=== PATIENT | female | born 1985 | race African-American/Black ===

== ENCOUNTER 2016-08-04 14:18 | Inpatient (IN) | payer OTHER ==
[~2016-08-04] VITALS: Ht 152.4 cm; Wt 69.9 kg
[2016-08-04] MEDS ORDERED: IV NORMAL SALINE 1000ML BAG 1,000 ML IV SCH (17:15)
[2016-08-04] MEDS ORDERED: RANI150T2 PO (17:34)
[2016-08-04] MEDS ORDERED: LORA10TA3 PO (17:34)
[2016-08-04] MEDS ORDERED: VENTOLIN HFA18 GM INH (17:34)
[2016-08-04] MEDS ORDERED: LOXA50CA PO (17:34)
[2016-08-04] MEDS ORDERED: POLY17PO5 PO (17:34)
[2016-08-04] MEDS ORDERED: ESCI20TA PO (17:34)
[2016-08-04] MEDS ORDERED: CARB200T PO (17:34)
[2016-08-04] MEDS ORDERED: ALBUTEROL SULFATE 2.5 MG/3 ML NEBU. NEB PRN (17:45)
[2016-08-04 17:54] LABS: BASO # 0.1 x10^3/uL (0.0-0.2); BASO % 1 % (0-3); EOS % 1 % (0-3); HEMOGLOBIN 10.8 g/dL (12.0-15.5); LYMPH # 2.2 x10^3/uL (1.0-4.8); LYMPH % 32 % (24-48); MEAN CORPUSCULAR HEMOGLOBIN 29 pg (25-35); MEAN CORPUSCULAR HGB CONC 34 g/dL (31-37); MEAN CORPUSCULAR VOLUME 87 fL (79-100); MONO % 14 % (0-9); NEUT % 53 % (31-73); PLATELET COUNT 612 x10^3/uL (140-400); RED BLOOD COUNT 3.69 x10^6/uL (3.50-5.40); RED CELL DISTRIBUTION WIDTH 13.7 % (11.5-14.5); WHITE BLOOD COUNT 6.9 x10^3/uL (4.0-11.0)
[2016-08-04] MEDS: POLYETHYLENE GLYCOL 3350 17 GM PACKET. PO SCH (18:00)
[2016-08-04 18:06] LABS: CALCIUM 8.7 mg/dL (8.5-10.1); CREATININE 1.1 mg/dL (0.6-1.0); GFR 70.6
[2016-08-04 18:12] LABS: ALBUMIN 3.2 g/dL (3.4-5.0); ALBUMIN/GLOBULIN RATIO 0.8 (1.0-1.7); TOTAL BILIRUBIN 0.1 mg/dL (0.2-1.0); TOTAL PROTEIN 7.3 g/dL (6.4-8.2)
[2016-08-04 18:13] VITALS: BP 138/94
--- NOTE | 2016-08-04 18:37 | PDOC2 ---
NEUROLOGY CONSULT Date of Admission Date of Admission DATE: 08/04/16 TIME: 18:27 Reason for Consult Reason for Consult: IMPRESSION: Seizure Tegretol issues, level low per nursing reports. Nausea Vomiting Hyponatremia. Hypokalemia CP MR GERD Bipolar disorder RECOMMENDATIONS/PLAN: Start Keppra 500 mg bid. Suggest discontinue Tegretol. EEG Lab: see orders Treat medical diseases. OT/PT Discussed with her correctional case manager at bedside. HISTORY OF THE PRESENT ILLNESS: 30-y-old AA female patient with above medical diseases and seizures and she has been treated with Tegretol. She has nausea, vomiting is admitted into [facility] today. Per her correctional case manager that she had 3 seizures in the last week and her Tegretol level was low. PAST MEDICAL HISTORY: Please see above. PAST SURGERY HISTORY: No major surgery recently. ALLERGY: Unknown MEDICATIONS: Refer to [facility] HISTORY: Non contributory. SOCIAL HISTORY: Lives in nursing facility. Denies smoking, drinking, and illicit drug use. REVIEW OF SYSTEMS: Constitutional: No malnutrition, weight loss, cachexia. Head: No recent traumatic brain or head injury. Skin: No edema, or rash. Ear: No infection, tinnitus. Eyes: No vision loss or color blindness. Nose: No bleeding or purulent discharges. Hearing: No hearing decrease. Neck: No injury. Breast: No history of cancer, masses,or discharges. Cardiac: No [place], arrhythmia. Pulmonary: No COPD. GI: GERD. Urinary/genital: UTI. Endocrinologic: No cousin face, craniofacial dysmorphism, polydactyly, goiter. Skeletomuscular: CP. Neurological: MR. Psychiatric: Denies drug use/abuse. Otherwise, not [id number] review of systems. PHYSICAL EXAMINATION: General appearance is in subacute distress. HEENT: Normocephalic and nontraumatic. Eyes, nose, ears, and throat are unremarkable. Neck is supple. No lymphadenopathy. No bruits are heard over the carotid artery. No crepitus. Cardiovascular: S1, S2, regular rate and rhythm. Pulmonary: Clear to auscultation bilaterally. Abdomen: Bowel sounds are positive. Abdomen is soft, nontender, and nondistended. Extremities: No rash, lesions, or edema. No restriction of range of motion NEUROLOGICAL EXAMINATION: Awake. Not oriented to time, place but may know person. PERRL. EOMI. CN: no focal findings. Muscle tone: Increased. Muscle strength: 4+ DTR: Brisky UE and LE Plantar reflex: Neutral response bilaterally Gait: not examined in bed. Sensory exam: no abnormal findings. No cerebellar signs elicited. She was unable to perform F-T-N test. Current Medications Current Medications Current Medications Sodium Chloride (Iv Sodium Chloride 0.9% 1000ml Bag) 1,000 ml @ 100 mls/hr Q10H IV ; Start 08/04/16 at 17:15 Carbamazepine (Tegretol) 400 mg BID PO ; Start 08/04/16 at 21:00 Polyethylene Glycol (miraLAX PACKET) 17 gm DAILY PO ; Start 08/04/16 at 18:00 Escitalopram Oxalate (Lexapro) 20 mg DAILY PO ; Start 08/05/16 at 09:00 Cetirizine HCl (Zyrtec) 10 mg DAILY PO ; Start 08/05/16 at 09:00 Loxapine Succinate (Loxitane) 50 mg BID PO ; Start 08/04/16 at 21:00 Famotidine (Pepcid) 20 mg BID PO ; Start 08/04/16 at 21:00 Albuterol Sulfate (Ventolin Neb Soln) 2.5 mg PRN Q6HRS PRN NEB SHORTNESS OF BREATH; Start 08/04/16 at 17:45 Active Scripts Active Reported Ventolin Hfa Inhaler (Albuterol Sulfate) 18 Gm Hfa.aer.ad 2 Puff INH Q6HRS Ranitidine Hcl 150 Mg Tablet 1 Tab PO BID Miralax (Polyethylene Glycol 3350) 17 Gm Powd.pack 1 Packet PO DAILY Loxapine (Loxapine Succinate) 50 Mg Capsule 50 Mg PO BID Loratadine 10 Mg Tablet 1 Tab PO DAILY Escitalopram Oxalate 20 Mg Tablet 1 Tab PO DAILY Tegretol (Carbamazepine) 200 Mg Tablet 2 Tab PO BID Allergies Allergies: Coded Allergies: No Known Drug Allergies (Unverified , 08/04/16) Vitals VITALS Vital Signs Date Time Temp Pulse Resp B/P Pulse Ox O2 Delivery O2 Flow Rate FiO2 08/04/16 18:13 97.8 101 18 138/94 97 Room Air 97.8 Labs Labs Laboratory Tests Test 08/04/16 17:45 White Blood Count 6.9x10^3/uL (4.0-11.0) Red Blood Count 3.69x10^6/uL (3.50-5.40) Hemoglobin 10.8g/dL (12.0-15.5) Hematocrit 32.0% (36.0-47.0) Mean Corpuscular Volume 87fL (79-100) Mean Corpuscular Hemoglobin 29pg (25-35) Mean Corpuscular Hemoglobin Concent 34g/dL (31-37) Red Cell Distribution Width 13.7% (11.5-14.5) Platelet Count 612x10^3/uL (140-400) Neutrophils (%) (Auto) 53% (31-73) Lymphocytes (%) (Auto) 32% (24-48) Monocytes (%) (Auto) 14% (0-9) Eosinophils (%) (Auto) 1% (0-3) Basophils (%) (Auto) 1% (0-3) Neutrophils # (Auto) 3.6x10^3uL (1.8-7.7) Lymphocytes # (Auto) 2.2x10^3/uL (1.0-4.8) Monocytes # (Auto) 0.9x10^3/uL (0.0-1.1) Eosinophils # (Auto) 0.0x10^3/uL (0.0-0.7) Basophils # (Auto) 0.1x10^3/uL (0.0-0.2) Sodium Level 134mmol/L (136-145) Potassium Level 3.0mmol/L (3.5-5.1) Chloride Level 96mmol/L (98-107) Carbon Dioxide Level 29mmol/L (21-32) Anion Gap 9 (6-14) Blood Urea Nitrogen 10mg/dL (7-20) Creatinine 1.1mg/dL (0.6-1.0) Estimated GFR (Cockcroft-Gault) 70.6 BUN/Creatinine Ratio 9 (6-20) Glucose Level 93mg/dL (70-99) Calcium Level 8.7mg/dL (8.5-10.1) Total Bilirubin 0.1mg/dL (0.2-1.0) Aspartate Amino Transf (AST/SGOT) 17U/L (15-37) Alanine Aminotransferase (ALT/SGPT) 28U/L (14-59) Alkaline Phosphatase 62U/L (46-116) Total Protein 7.3g/dL (6.4-8.2) Albumin 3.2g/dL (3.4-5.0) Albumin/Globulin Ratio 0.8 (1.0-1.7) Carbamazepine (Tegretol) Level 13.4mcg/mL (4.0-12.0) Carbamazepine Last Dose Date 08/04/16 Carbamazepine Last Dose Time 0900 Laboratory Tests Test 08/04/16 17:45 White Blood Count 6.9x10^3/uL (4.0-11.0) Red Blood Count 3.69x10^6/uL (3.50-5.40) Hemoglobin 10.8g/dL (12.0-15.5) Hematocrit 32.0% (36.0-47.0) Mean Corpuscular Volume 87fL (79-100) Mean Corpuscular Hemoglobin 29pg (25-35) Mean Corpuscular Hemoglobin Concent 34g/dL (31-37) Red Cell Distribution Width 13.7% (11.5-14.5) Platelet Count 612x10^3/uL (140-400) Neutrophils (%) (Auto) 53% (31-73) Lymphocytes (%) (Auto) 32% (24-48) Monocytes (%) (Auto) 14% (0-9) Eosinophils (%) (Auto) 1% (0-3) Basophils (%) (Auto) 1% (0-3) Neutrophils # (Auto) 3.6x10^3uL (1.8-7.7) Lymphocytes # (Auto) 2.2x10^3/uL (1.0-4.8) Monocytes # (Auto) 0.9x10^3/uL (0.0-1.1) Eosinophils # (Auto) 0.0x10^3/uL (0.0-0.7) Basophils # (Auto) 0.1x10^3/uL (0.0-0.2) Sodium Level 134mmol/L (136-145) Potassium Level 3.0mmol/L (3.5-5.1) Chloride Level 96mmol/L (98-107) Carbon Dioxide Level 29mmol/L (21-32) Anion Gap 9 (6-14) Blood Urea Nitrogen 10mg/dL (7-20) Creatinine 1.1mg/dL (0.6-1.0) Estimated GFR (Cockcroft-Gault) 70.6 BUN/Creatinine Ratio 9 (6-20) Glucose Level 93mg/dL (70-99) Calcium Level 8.7mg/dL (8.5-10.1) Total Bilirubin 0.1mg/dL (0.2-1.0) Aspartate Amino Transf (AST/SGOT) 17U/L (15-37) Alanine Aminotransferase (ALT/SGPT) 28U/L (14-59) Alkaline Phosphatase 62U/L (46-116) Total Protein 7.3g/dL (6.4-8.2) Albumin 3.2g/dL (3.4-5.0) Albumin/Globulin Ratio 0.8 (1.0-1.7) Carbamazepine (Tegretol) Level 13.4mcg/mL (4.0-12.0) Carbamazepine Last Dose Date 08/04/16 Carbamazepine Last Dose Time 0900 THO AMBRIZ MD Aug 04, 2016 18:37
[2016-08-04 20:38] VITALS: BP 134/89
[2016-08-04] MEDS ORDERED: CARBAMAZEPINE 200 MG TABLET. PO SCH (21:00)
[2016-08-04] MEDS: LEVETIRACETAM 500 MG TABLET PO SCH (21:04)
[2016-08-04] MEDS: FAMOTIDINE 20 MG TABLET. PO SCH (21:04)
[2016-08-04] MEDS: LOXAPINE SUCCINATE 25 MG CAPSULE PO SCH (21:04)
[2016-08-04 22:01] LABS: BILIRUBIN,URINE NEGATIVE (NEG); GLUCOSE,URINE NEGATIVE (NEG); NITRITE,URINE NEGATIVE (NEG); PROTEIN,URINE NEGATIVE (NEG-TRACE); UROBILINOGEN,URINE 0.2 mg/dL (0.2 mg/dL)
[2016-08-04 22:10] LABS: BACTERIA,URINE FEW /HPF (0-FEW); RBC,URINE 20-40 /HPF (0-2); SQUAMOUS EPITHELIAL CELL,UR MANY /LPF
[2016-08-04 23:55] VITALS: BP 141/83
[2016-08-05 03:15] VITALS: BP 144/95
[2016-08-05] MEDS ORDERED: ACETAMINOPHEN 325 MG TABLET. PO PRN (03:15)
[2016-08-05 07:35] VITALS: BP 139/90
[2016-08-05] MEDS ORDERED: LORAZEPAM 1 MG TABLET. PO ONE ×2 (08:00→08:15)
--- NOTE | 2016-08-05 08:07 | PDOC ---
Provider Note Provider Note See admission H&P dictation #[id number] Impression: 1. Abdominal pain with nausea, vomiting and diarrhea: 2. Recent acute renal insufficiency: 3. Seizure disorder: 4. Supratherapeutic Tegretol level: 4. Hypokalemia: PRACHI REYNOLDS MD Aug 05, 2016 08:07
--- NOTE | 2016-08-05 08:53 | RAD ---
Indication acute renal failure. Grayscale imaging of the kidneys was performed. No prior imaging of the kidneys is available. The right kidney measures 9.8-4.7 x 3.6 cm and appears unremarkable showing no evidence of hydronephrosis or mass. The left kidney measures 10.5 x 4.5 x 3.8 cm and also appears unremarkable showing no evidence of hydronephrosis or mass. The urinary bladder appeared grossly normal. IMPRESSION: No hydronephrosis or mass seen associated with either kidney
[2016-08-05] MEDS ORDERED: ESCITALOPRAM 10 MG TABLET. PO SCH (09:00)
[2016-08-05] MEDS ORDERED: CETIRIZINE HCL 10 MG TABLET PO SCH (09:00)
[2016-08-05] MEDS: POLYETHYLENE GLYCOL 3350 17 GM PACKET. PO SCH (09:03)
[2016-08-05] MEDS: FAMOTIDINE 20 MG TABLET. PO SCH (09:04)
[2016-08-05] MEDS: POTASSIUM CHLORIDE 20 MEQ TABLET.ER. PO SCH ×2 (09:04→17:20)
[2016-08-05] MEDS: LEVETIRACETAM 500 MG TABLET PO SCH (09:04)
[2016-08-05] MEDS: LOXAPINE SUCCINATE 25 MG CAPSULE PO SCH (09:23)
--- NOTE | 2016-08-05 10:02 | RAD ---
Indication nausea and vomiting. A single KUB was obtained. The abdominal gas pattern has a nonobstructive appearance. An acute finding is not seen on the single film obtained. No organomegaly or abnormal calculi are seen. IMPRESSION: No acute or significant finding seen on KUB
[2016-08-05 11:00] VITALS: BP 149/96
--- NOTE | 2016-08-05 11:38 | RAD ---
Indication abdominal pain. Nausea and vomiting. Axial images through the abdomen and pelvis were obtained. Oral contrast was administered. IV contrast was not. No prior CT imaging of the abdomen or pelvis is available. The lung bases are clear. The liver and spleen appear unremarkable. The gallbladder is somewhat distended. There is possible thickening of the gallbladder wall. If gallbladder pathology is clinically suspect ultrasound should be considered. The pancreas appears unremarkable. There is some mild dilatation of proximal loops of small bowel. This is nonspecific. Mild ileus or low-grade mechanical obstruction are not excluded. High-grade mechanical obstruction is not suggested on this study. No definite adrenal or renal pathology is seen. No acute finding is apparent in the pelvis. IMPRESSION: Possible gallbladder pathology. If this is clinically suspect ultrasound would be advised. Mild dilatation of small bowel loops is nonspecific and may reflect ileus or conceivably partial mechanical obstruction. High-grade mechanical obstruction is not suggested on this exam
--- NOTE | 2016-08-05 12:12 | PDOC ---
PROGRESS NOTES Assessment Assessment Seizure Tegretol issues, level low per nursing reports on 08/04, but it was high on lab. UTI Nausea Vomiting Hyponatremia. Hypokalemia CP MR GERD Bipolar disorder RECOMMENDATIONS/PLAN: Continue Keppra 500 mg bid. Discontinued Tegretol on 08/04. EEG, unable to perform on her due to aggressiveness behavior. Treat medical diseases. Treat UTI. OT/PT Discussed with her leather case finisher at bedside on 08/04.. HISTORY OF THE PRESENT ILLNESS: 30-y-old AA female patient with above medical diseases and seizures and she has been treated with Tegretol. She has nausea, vomiting is admitted into [facility] today. Per her leather case finisher that she had 3 seizures in the last week and her Tegretol level was low, but repeated Tegretol level here on the floor showed high of 13.4. Anyway, Tegretol was discontinued on 08/04 and Keppra was started on 08/04. No seizures reported. PAST MEDICAL HISTORY: Please see above. PAST SURGERY HISTORY: No major surgery recently. ALLERGY: Unknown MEDICATIONS: Refer to [facility] HISTORY: Non contributory. SOCIAL HISTORY: Lives in nursing facility. Denies smoking, drinking, and illicit drug use. REVIEW OF SYSTEMS: Constitutional: No malnutrition, weight loss, cachexia. Head: No recent traumatic brain or head injury. Skin: No edema, or rash. Ear: No infection, tinnitus. Eyes: No vision loss or color blindness. Nose: No bleeding or purulent discharges. Hearing: No hearing decrease. Neck: No injury. Breast: No history of cancer, masses,or discharges. Cardiac: No [place], arrhythmia. Pulmonary: No COPD. GI: GERD. Urinary/genital: UTI. Endocrinologic: No cousin face, craniofacial dysmorphism, polydactyly, goiter. Skeletomuscular: CP. Neurological: MR. Psychiatric: Denies drug use/abuse. Otherwise, not -gltlw review of systems. PHYSICAL EXAMINATION: General appearance is in subacute distress. HEENT: Normocephalic and nontraumatic. Eyes, nose, ears, and throat are unremarkable. Neck is supple. No lymphadenopathy. No bruits are heard over the carotid artery. No crepitus. Cardiovascular: S1, S2, regular rate and rhythm. Pulmonary: Clear to auscultation bilaterally. Abdomen: Bowel sounds are positive. Abdomen is soft, nontender, and nondistended. Extremities: No rash, lesions, or edema. No restriction of range of motion NEUROLOGICAL EXAMINATION: Awake. Not oriented to time, place but may know person. PERRL. EOMI. CN: no focal findings. Muscle tone: Increased. Muscle strength: 4+ DTR: Brisky UE and LE Plantar reflex: Neutral response bilaterally Gait: not examined in bed. Sensory exam: no abnormal findings. No cerebellar signs elicited. She was unable to perform F-T-N test. Objective Objective Vital Signs Date Time Temp Pulse Resp B/P Pulse Ox O2 Delivery O2 Flow Rate FiO2 08/05/16 11:00 97.9 96 20 149/96 96 Room Air 97.9 Intake and Output 08/05/16 07:00 Intake Total 650 ml Output Total 650 ml Balance 0 ml Intake Oral 650 ml Output Urine Total 650 ml Vitals Signs Vitals VS - Last 72 Hours, by Label Date Time Temp Pulse Resp B/P Pulse Ox O2 Delivery O2 Flow Rate FiO2 08/05/16 11:00 97.9 96 20 149/96 96 Room Air 97.9 08/05/16 08:00 Room Air 08/05/16 07:35 95.9 90 20 139/90 97 Room Air 95.9 08/05/16 03:15 97.6 109 18 144/95 95 Room Air 97.6 08/04/16 23:55 99.3 108 20 141/83 97 Room Air 99.3 08/04/16 20:38 98.6 20 134/89 98 Room Air 98.6 08/04/16 20:05 Room Air 08/04/16 19:00 97 Room Air 08/04/16 18:13 97.8 101 18 138/94 97 Room Air 97.8 08/04/16 18:00 Room Air Laboratory Laboratory Laboratory Tests Test 08/04/16 17:45 08/04/16 20:15 White Blood Count 6.9x10^3/uL (4.0-11.0) Red Blood Count 3.69x10^6/uL (3.50-5.40) Hemoglobin 10.8g/dL (12.0-15.5) Hematocrit 32.0% (36.0-47.0) Mean Corpuscular Volume 87fL (79-100) Mean Corpuscular Hemoglobin 29pg (25-35) Mean Corpuscular Hemoglobin Concent 34g/dL (31-37) Red Cell Distribution Width 13.7% (11.5-14.5) Platelet Count 612x10^3/uL (140-400) Neutrophils (%) (Auto) 53% (31-73) Lymphocytes (%) (Auto) 32% (24-48) Monocytes (%) (Auto) 14% (0-9) Eosinophils (%) (Auto) 1% (0-3) Basophils (%) (Auto) 1% (0-3) Neutrophils # (Auto) 3.6x10^3uL (1.8-7.7) Lymphocytes # (Auto) 2.2x10^3/uL (1.0-4.8) Monocytes # (Auto) 0.9x10^3/uL (0.0-1.1) Eosinophils # (Auto) 0.0x10^3/uL (0.0-0.7) Basophils # (Auto) 0.1x10^3/uL (0.0-0.2) Sodium Level 134mmol/L (136-145) Potassium Level 3.0mmol/L (3.5-5.1) Chloride Level 96mmol/L (98-107) Carbon Dioxide Level 29mmol/L (21-32) Anion Gap 9 (6-14) Blood Urea Nitrogen 10mg/dL (7-20) Creatinine 1.1mg/dL (0.6-1.0) Estimated GFR (Cockcroft-Gault) 70.6 BUN/Creatinine Ratio 9 (6-20) Glucose Level 93mg/dL (70-99) Calcium Level 8.7mg/dL (8.5-10.1) Total Bilirubin 0.1mg/dL (0.2-1.0) Aspartate Amino Transf (AST/SGOT) 17U/L (15-37) Alanine Aminotransferase (ALT/SGPT) 28U/L (14-59) Alkaline Phosphatase 62U/L (46-116) Total Protein 7.3g/dL (6.4-8.2) Albumin 3.2g/dL (3.4-5.0) Albumin/Globulin Ratio 0.8 (1.0-1.7) Carbamazepine (Tegretol) Level 13.4mcg/mL (4.0-12.0) Carbamazepine Last Dose Date 08/04/16 Carbamazepine Last Dose Time 0900 Urine Collection Type Unknown Urine Color Yellow Urine Clarity Clear Urine pH 6.0 Urine Specific [place] 1.015 Urine Protein Negativemg/dL (NEG-TRACE) Urine Glucose (UA) Negativemg/dL (NEG) Urine Ketones (Stick) Negativemg/dL (NEG) Urine Blood Large (NEG) Urine Nitrite Negative (NEG) Urine Bilirubin Negative (NEG) Urine Urobilinogen Dipstick 0.2mg/dL (0.2 mg/dL) Urine Leukocyte Esterase Negative (NEG) Urine RBC 20-40/HPF (0-2) Urine WBC 5-10/HPF (0-4) Urine Squamous Epithelial Cells Many/LPF Urine Amorphous Sediment Present/HPF Urine Bacteria Few/HPF (0-FEW) Urine Mucus Mod/LPF Medication Medications Current Medications Acetaminophen (Tylenol) 650 mg PRN Q6HRS PRN PO MILD PAIN / TEMP Last administered on 08/05/16 03:13; Start 08/05/16 at 03:15 Albuterol Sulfate (Ventolin Neb Soln) 2.5 mg PRN Q6HRS PRN NEB SHORTNESS OF BREATH; Start 08/04/16 at 17:45 Carbamazepine (Tegretol) 400 mg BID PO ; Start 08/04/16 at 21:00; Stop 08/05/16 at 08:09; Status DC Cetirizine HCl (Zyrtec) 10 mg DAILY PO Last administered on 08/05/16 09:05; Start 08/05/16 at 09:00 Escitalopram Oxalate (Lexapro) 20 mg DAILY PO Last administered on 08/05/16 09: 04; Start 08/05/16 at 09:00 Famotidine (Pepcid) 20 mg BID PO Last administered on 08/05/16 09:04; Start 08/04/16 at 21:00 Levetiracetam (Keppra) 500 mg BID PO Last administered on 08/05/16 09:04; Start 08/04/16 at 21:00 Lorazepam (Ativan) 1 mg 1X ONCE PO ; Start 08/05/16 at 08:00; Stop 08/05/16 at 08 :01; Status Cancel Lorazepam (Ativan) 1 mg 1X ONCE PO Last administered on 08/05/16 10:18; Start 08/05/16 at 08:15; Stop 08/05/16 at 08:16; Status DC Loxapine Succinate (Loxitane) 50 mg BID PO Last administered on 08/05/16 09:23 ; Start 08/04/16 at 21:00 Polyethylene Glycol (miraLAX PACKET) 17 gm DAILY PO Last administered on 09:03; Start 08/04/16 at 18:00 Potassium Chloride (Klor-Con) 40 meq BID92 PO Last administered on 08/05/16 09: 04; Start 08/05/16 at 09:00; Stop 08/05/16 at 14:01 Sodium Chloride (Iv Sodium Chloride 0.9% 1000ml Bag) 1,000 ml @ 100 mls/hr Q10H IV ; Start 08/04/16 at 17:15; Stop 08/05/16 at 08:04; Status DC Comment Review of Relevant I have reviewed the following items theresa (where applicable) has been applied. THO AMBRIZ MD Aug 05, 2016 12:12
--- NOTE | 2016-08-05 13:15 | DISCH ---
DISCHARGE INSTRUCTIONS Condition on Discharge Condition on Discharge: Stable Activity After Discharge Activity Instructions for Disc: Activity as tolerated Diet after Discharge Diet after Discharge: Regular (limit fatty foods) Additional Diet Restrictions: encourage fluids Contacting the DR. after DC Call your doctor for: If your condition worsens Follow-Up Follow up with: Dr Johnson in one week. Follow Up With: Neurology per their rec for f/u on change to PRACHI Stone MD Aug 05, 2016 13:15
[2016-08-05] MEDS ORDERED: LEVE500T56 PO (13:21)
[2016-08-05 15:00] VITALS: BP 125/78
--- NOTE | 2016-08-05 18:11 | HP ---
ADMIT DATE: 08/05/2016 ATTENDING PHYSICIAN: Dr. Prachi Reynolds. CHIEF COMPLAINT: Abdominal pain with recent elevated creatinine. HISTORY OF PRESENT ILLNESS: The patient is a 30-year-old female with a history of cerebral palsy, mental retardation and seizure disorder who had been seen in the clinic on 07/31/2016 due to increased number of seizures in the week prior. The staff at her residence and facility had noticed that she had had several seizures in the week prior to admission. It was felt that she was having episodes where she was not responding. She had also been acting out in more anger during that period of time. Staff was unsure if this was behavioral or not, but the patient did have diarrhea on and off for the 4 days prior to admission with excessive sweating and a decreased appetite. Due to that she had lab work done on 07/31/2016 that returned over the weekend and on Wednesday it was noted that she had a Tegretol level which was random at 13.1 and a creatinine of 2.19, which is above the baseline of the patient's creatinine of 0.7. Her GFR estimated was 34, again, which is unusual for the patient. She did have a mildly elevated AST at 43 and a sodium of 132. She also had elevated white blood cell count at 14.7. Due to these findings, it was felt that we should admit her since the staff had reported that she had also been having some emesis over the weekend as well as unsteady staggering gait. The decision was to admit her for observation, rechecking of labs and IV fluids depending on how she was able to eat and drink as well as evaluation of abdominal pain. She does have a history of chronic abdominal pain, which is sometimes difficult to determine if this is an attention seeking response or not. When the patient was seen on 07/31/2016 it was decided due to her symptoms of the lower abdominal pain and diarrhea that we would treat empirically with Bactrim for possible UTI since she was not able to provide a urine sample at the time of the evaluation. She did reportedly receive a couple of days of that. PAST MEDICAL HISTORY: Significant for unspecified affective disorder, allergic rhinitis, chronic constipation, glucose intolerance, gastroesophageal reflux disease, cerebral palsy, developmental disability, seizure disorder. PAST SURGICAL HISTORY: Unknown if there is any significant past surgical history in the remote past, but nothing recently. SOCIAL HISTORY: She does not smoke. She does not drink any alcohol. 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 FAMILY HISTORY: Her mother and father are . ALLERGIES TO MEDICATIONS: No known drug allergies. MEDICATIONS: At the time of admission are Tegretol ER 400 mg p.o. b.i.d., Lexapro 20 mg p.o. daily, loratadine 10 mg p.o. daily, loxapine 50 mg p.o. b.i.d., MiraLax 1 capsule daily, Zantac 150 mg p.o. b.i.d., Ventolin 2 puffs q.i.d. p.r.n. REVIEW OF SYSTEMS: Limited due to the patient's mental disabilities. The staff is able to relate some history. There is no apparent recent injury. There are no breathing difficulties. She apparently has been having bowel movements. PHYSICAL EXAMINATION: VITAL SIGNS: At the time of admission were temperature 97.8, pulse 101, respiratory rate 18, blood pressure 138/94, O2 sat 94% on room air. GENERAL: The patient is a well-developed apparently nourished female in no acute distress. She has a bony prominence with scarring in the midline of the superior portion of her forehead. She does have other stigma related to mental retardation. The tympanic membranes and canals are occluded by cerumen but partly visible otherwise and appear normal. The nasal mucosa is erythematous. Oral mucosa is pink and moist. NECK: Without JVD or bruit. CHEST: Clear to auscultation bilaterally with okay air movement throughout. CARDIOVASCULAR: The heart has a regular rate and rhythm without murmur. ABDOMEN: Occasional bowel sounds, soft, minimal diffuse tenderness to palpation, but worse in the epigastric and lower abdominal area per patient report. There is no guarding or rebound tenderness apparent. EXTREMITIES: Lower extremities are without edema. NEUROLOGIC: Mental retardation. She is able to answer questions, although there is some question regarding the reliability of her answers. Gait was not tested. PSYCHIATRIC: She is somewhat tearful this morning and she is somewhat scared and she would like to talk to the staff at her home. The staff has reported in the past that she does have some attention-seeking behaviors. LABORATORY Data: At the time of admission, WBC 6.9, hemoglobin 10.8, hematocrit 32.0, platelets 612. Urine shows specific gravity 1.015, large blood, negative nitrite, leukocyte esterase, 20-40 rbc's, 5-10 wbc's, many epithelial cells, amorphous sediment is present, few urine bacteria and moderate mucus. Tegretol level was 13.4. Sodium 134, potassium 3.0, chloride 96, CO2 29, BUN 10, creatinine 1.1. LFTs are within normal limits. Albumin was 3.2, total bilirubin was 0.1, KUB of the abdomen report is pending as well as a renal ultrasound. Preliminary reading and of the KUB shows a large amount of gas in the abdomen. No apparent free air. Await official reading. IMPRESSION: 1. Abdominal pain with recent nausea, vomiting and diarrhea per staff. 2. Recent acute renal failure, which appears to be resolved and was likely due to vasomotor etiology. 3. Seizure disorder with increased seizures, possibly due to acute illness. 4. Supratherapeutic Tegretol level. 5. Hypokalemia. PLAN: The patient is admitted for further evaluation of her abdominal pain as well as her lab abnormalities including hypokalemia and elevated Tegretol level. Neurology has been consulted regarding options for changing her medication and the recommendation was to begin Keppra and consider discontinuing Tegretol. Since her Tegretol level was high and she was having some possible balance issues, we will discontinue the Tegretol for now. We will attempt to get a CT of the abdomen to make sure there is no evidence of obstruction or any other abnormality. We will replace the patient's potassium today. There was an order for an EEG, although the patient became very distraught and it likely would not be able to get a good reading from that, so we will hold on that for right now. We will also probably need to give Ativan by mouth to sedate the patient, so she may be able to get the CT scan of the abdomen. If the CT of the abdomen looks okay, and she is eating, she could possibly be discharged to home in her usual setting and do further evaluation as an outpatient if needed. PRACHI REYNOLDS MD DR: CATARINO/kaushal JOB#: [id number] / [id number]
== END 2016-08-05 19:40 | disposition home or self-care (01) | DRG 392 ==
LOC: 6 SOUTH 16:47
PROVIDERS: ADMIT Family Medicine; ATTEND Family Medicine
DX: A08.4 Viral intestinal infection, unspecified (principal); N39.0 Urinary tract infection, site not specified; E87.1 Hypo-osmolality and hyponatremia; R19.7 Diarrhea, unspecified; F79 Unspecified intellectual disabilities; G89.29 Other chronic pain; G40.909 Epilepsy, unspecified, not intractable, without status epilepticus; E87.6 Hypokalemia; K21.9 Gastro-esophageal reflux disease without esophagitis; F31.9 Bipolar disorder, unspecified; E74.39 Other disorders of intestinal carbohydrate absorption; K59.09 Other constipation; Z79.899 Other long term (current) drug therapy
CPT/HCPCS: 36415; 74000; 74176; 76770; 80053; 80156; 81001; 85027; 87086

== ENCOUNTER → 2016-08-28 | Outpatient (CLI) | payer OTHER ==
[2016-08-05 15:00] VITALS: BP 125/78
[~2016-08-28] MED LIST: CARB200T PO; ESCI20TA PO; LEVE500T56 PO; LORA10TA3 PO; LOXA50CA PO; POLY17PO5 PO; RANI150T2 PO; VENTOLIN HFA18 GM INH
--- NOTE | 2016-08-28 10:31 | KCIC ---
PROCEDURE Right upper quadrant ultrasound. HISTORY Right upper quadrant pain. Abnormal CT. TECHNIQUE Right upper quadrant ultrasound was performed. COMPARISON CT from [facility] dated August 05, 2016. FINDINGS Aorta is normal caliber. IVC is patent. Visualized pancreas is unremarkable. Liver is normal in size and is increased in echogenicity. Biliary system is dilated, common common bile duct 9 millimeters. There is cholelithiasis. The gallbladder wall is upper limit of normal at 3 millimeters. There is no pericholecystic fluid. Sonographic Orozco sign is reported as negative. Right kidney measures at least 9.7 centimeters in length and is without hydronephrosis or mass. IMPRESSION - Cholelithiasis with gallbladder wall thickening. Sonographic Oroczo sign is reported as negative. If there is still strong clinical suspicion for cholecystitis, consider hepatobiliary scintigraphy. - Dilated common bile duct, consider MRCP for further evaluation. - Minimal fatty infiltration of the liver. Electronically signed by: Juan Carlos Caballero MD (Aug 28, 2016 10:30:05)
== END | disposition home or self-care (01) ==
LOC: KCIC US 08:51
PROVIDERS: ATTEND Family Medicine
DX: R93.5 Abnormal findings on diagnostic imaging of other abdominal regions, including retroperitoneum (principal); R10.11 Right upper quadrant pain; K80.20 Calculus of gallbladder without cholecystitis without obstruction; K83.8 Other specified diseases of biliary tract; K76.0 Fatty (change of) liver, not elsewhere classified
CPT/HCPCS: 76705

== ENCOUNTER 2016-09-23 06:40 | Observation (INO) | payer OTHER ==
[~2016-09-23] VITALS: Ht 152.4 cm; Wt 68.5 kg
[2016-09-23] VITALS (8 sets, daily range): BP systolic 101–147; BP diastolic 67–103
[2016-09-23] MEDS ORDERED: IV RINGERS,LACTATED 1000ML 1,000 ML IV SCH (07:00)
[2016-09-23] MEDS ORDERED: LIDOCAINE 1% 1 ML SYRINGE. ID PRN (07:00)
[2016-09-23] MEDS ORDERED: PROCHLORPERAZINE 10 MG/2 ML VIAL. IV PRN (07:00)
[2016-09-23] MEDS ORDERED: IOHEXOL 300 MG/ML 50 ML VIAL. ONE (07:15)
[2016-09-23] MEDS ORDERED: SURGICEL HEMOSTAT 4X8 EACH. ONE (07:15)
[2016-09-23] MEDS ORDERED: BUPIVAC MPF-EPI 0.5%-1:200000 30 ML VIAL. ONE (07:15)
[2016-09-23] MEDS ORDERED: DEXAMETHASONE SOD PHOS 20 MG/5 ML VIAL. ONE (08:00)
[2016-09-23] MEDS ORDERED: FENTANYL PF 100 MCG/2 ML VIAL. ONE (08:00)
[2016-09-23] MEDS ORDERED: LIDOCAINE 2% 100 MG/5 ML DISP.SYRIN. ONE (08:00)
[2016-09-23] MEDS ORDERED: ONDANSETRON PF 4 MG/2 ML VIAL. ONE (08:00)
[2016-09-23] MEDS ORDERED: MIDAZOLAM HCL 2 MG/2 ML VIAL. ONE (08:00)
[2016-09-23] MEDS ORDERED: PROPOFOL 20 ML IV ONE (08:00)
[2016-09-23] MEDS ORDERED: SUCCINYLCHOLINE 200 MG/10 ML VIAL. ONE (08:01)
[2016-09-23] MEDS ORDERED: ROCURONIUM 50 MG/5 ML VIAL. ONE ×2 (08:01→08:54)
[2016-09-23] MEDS: CEFAZOLIN 1GM IVPB FOR OMNI 50 ML IV PRN ×2 (08:48→08:49)
[2016-09-23] MEDS ORDERED: VECURONIUM BOLUS 10 MG VIAL. IV ONE (08:56)
[2016-09-23] MEDS ORDERED: CEFAZOLIN 1GM IVPB FOR OMNI 50 ML IV ONE (09:40)
[2016-09-23] MEDS ORDERED: SEVOFLURANE 61 TO 120 MINUTES. IH ONE (09:43)
[2016-09-23] MEDS ORDERED: SUGAMMADEX SODIUM 200 MG/2 ML VIAL. IVP ONE (09:57)
--- NOTE | 2016-09-23 09:57 | RAD ---
Intraoperative cholangiogram, 09/23/2016: History: Cholecystectomy 2 spot films from surgery are presented for review. Contrast has been injected into what appears to be the cystic duct remnant. 27 seconds of fluoroscopy time was utilized. There is good flow of contrast into the duodenum at the ampulla. No filling defect is seen in the common duct to suggest a retained calculus. There is a lucency in the cystic duct which may be an air bubble or calculus. The intrahepatic ducts are incompletely opacified. No contrast extravasation is seen. IMPRESSION: Filling defect in the cystic duct which may be an air bubble or a calculus.
[2016-09-23] MEDS ORDERED: EPINEPHRINE 1 MG/ML VIAL. ONE (10:00)
[2016-09-23] MEDS ORDERED: NEOSTIGMINE METHYLSULFATE 5 MG/5 ML SYRINGE. ONE (10:21)
[2016-09-23] MEDS ORDERED: GLYCOPYRROLATE 1 MG/5 ML VIAL. ONE (10:22)
[2016-09-23] MEDS ORDERED: IV NORMAL SALINE 1000ML BAG 1,000 ML IV SCH (10:25)
[2016-09-23] MEDS ORDERED: 0.9 % SODIUM CHLORIDE 10 ML DISP.SYRIN. IV PRN (10:30)
[2016-09-23] MEDS ORDERED: HYDROMORPHONE 2 MG/ML VIAL. IV PRN (10:30)
[2016-09-23] MEDS ORDERED: METOCLOPRAMIDE HCL 10 MG/2 ML VIAL. IV PRN (10:30)
[2016-09-23] MEDS ORDERED: ONDANSETRON PF 4 MG/2 ML VIAL. IV PRN (10:30)
[2016-09-23] MEDS ORDERED: HYDR-971 PO (10:32)
--- NOTE | 2016-09-23 10:33 | PDOC ---
BRIEF OPERATIVE NOTE Pre-Op Diagnosis cholelithiasis Post-Op Diagnosis severe chronic cholecystitis Procedure Performed lap estefania, ioc Surgeon lester fagan Anesthesia Type: General Blood Loss 50 IV Fluid 1000 Specimens Obtained gb MO FAGAN MD Sep 23, 2016 10:33
[2016-09-23] MEDS: FENTANYL PF 100 MCG/2 ML VIAL. IV PRN ×5 (10:42→12:09)
[2016-09-23] MEDS: MORPHINE SULFATE 2 MG/ML DISP.SYRIN. IV PRN ×2 (11:20→11:32)
[2016-09-23] MEDS: ALBUTEROL SULFATE 2.5 MG/3 ML NEBU. NEB SCH ×2 (12:00→20:47)
[2016-09-23] MEDS ORDERED: NON FORMULARY ITEM (Albuterol Sulfate (Ventolin Hfa Inhaler) 2 PUFF) INH SCH (12:00)
[2016-09-23] MEDS: HYDROMORPHONE 2 MG/ML VIAL. IV PRN ×2 (12:15→12:26)
--- NOTE | 2016-09-23 16:10 | OP ---
DATE OF SURGERY: 09/23/2016 PREOPERATIVE DIAGNOSIS: Cholelithiasis. POSTOPERATIVE DIAGNOSIS: Severe chronic cholecystitis. PROCEDURE: Laparoscopic cholecystectomy with intraoperative cholangiogram. SURGEON: Mo Fagan M.D. ANESTHESIA: General. ESTIMATED BLOOD LOSS: 50 mL. INTRAVENOUS FLUIDS: 1000 mL. INDICATIONS: The patient is a 31-year-old mentally handicapped lady, who presents with somewhat vague symptoms and cholelithiasis on ultrasound, it was thought that her symptoms were related to symptomatic cholelithiasis. She is here for cholecystectomy. FINDINGS: She had severe chronic cholecystitis. Intraoperative cholangiogram showed no filling defects in the common duct, common hepatic duct, intrahepatic radicals and free flow of contrast into the duodenum. DESCRIPTION OF PROCEDURE: After informed consent was obtained, the patient was taken to the operating room and placed in the supine position. After adequate induction of general anesthesia, she was prepped and draped in usual sterile fashion. An infraumbilical skin incision was made with a scalpel, subcutaneous tissues with a hemostat. [facility] was used to grab the fascia and lift it anteriorly. Veress was used to gain access to the peritoneal cavity. Low opening pressures confirmed intraperitoneal placement of Veress needle. Pneumoperitoneum to 15 mmHg was established followed by placement of a 5 mm port. A 5 mm 30 degree lens was inserted which revealed good port placement. No evidence of entry trauma. She has a very short torso, so the distance from her umbilicus to her liver is very short which increased the difficulty of the procedure. She was placed head up, rotated towards her left. Three additional ports were placed under direct vision after injecting the sites with local anesthetic, one was an 11 mm epigastric and two were 5 mm right lateral ports, the 11 mm port had to be upsized later in the procedure to a 12 mm port. The gallbladder was encased in thick omental adhesions. These were taken down with cautery as well as bluntly. The gallbladder itself was markedly thickened and firm and not distensible, very evident, she had severe chronic cholecystitis ongoing. A bulldog grasper was then used to grab the fundus of the gallbladder and lift it anteriorly and slightly towards the right. The infundibulum at that point was able to be exposed, it was still encased in omental adhesions which were taken down with the [place]. [place] dissector was used to dissect out the triangle of Calot. The completion of dissection, the gallbladder had been dissected away from the cystic plate. Two structures were seen leading directly to the gallbladder, one was a cystic artery, one was a cystic duct. The base of the gallbladder was free of extraneous tissue, liver could be seen behind the gallbladder. Two clips were placed on cystic artery proximally one distally. The gallbladder itself and the cystic duct was so thickened that this clip billing auditor would not go over the cystic duct. Therefore, a clamp was used to occlude the cystic duct at its junction with the infundibulum. Ductotomy was made with scissors. There was a stone in cystic duct stump that was milked back and out through the ductotomy. Intraoperative cholangiogram showed a filling defect in the cystic duct that maybe a stone versus an air bubble, but otherwise the cholangiogram was normal. No filling defects in the common duct, common hepatic, left and right hepatics, the visualized portions of the hepatic radicles were normal and there was free flow of contrast into the duodenum. The cholangiogram was interpreted as otherwise normal and it was completed. The catheter was removed. Due to the thickness and chronic inflammatory changes at the cystic duct, it was divided with a ARIANE blue load stapler. Care was taken to make sure that the staple line was on tissue that had been already dissected and it did not encroach upon the un-dissected tissue. This staple line was intact. It just appeared somewhat tenuous because how thickened and not collapsable the cystic duct stump was. Therefore, the cystic duct stump was further closed with a PDS Endoloop. Some consideration was given to placing a drain so that if she developed bile leak postoperatively, it would drained with a drain but, given her propensity and her history of self-harm and her limited mental capacity, I thought a drain would not be advisable in this situation. At this point, the cystic duct stump closure appeared intact. It appeared secure. The clipped cystic artery was transected sharply. Gallbladder was removed from bed of the liver with cautery. The plain between the gallbladder and the liver bed was obliterated. There was some bleeding from the liver bed that was controlled easily with cautery. The gallbladder was placed in laparoscopic bag and brought out through the epigastric incision. The incision had to be enlarged to facilitate removal such as thickened abnormal gallbladder, right upper quadrant was irrigated. Irrigant returned clear. No bleeding or bile leakage noted. Fascial closure device was used to close the fascia at the epigastric incision using 0-Vicryl suture x 2, one final look at the right upper quadrant revealed it to be hemostatic. The ports were removed under direct vision. They were hemostatic. Pneumoperitoneum was desufflated. Skin incisions were closed with 4-0 Monocryl in subcuticular fashion. Sterile dressings were placed. She was transferred in stable condition to the recovery room. Also, of note intraoperatively, I was advised by the CHEMIST and the anesthesiologist that the patient's IV had infiltrated and an unknown amount of paralytic had been infused through her infiltrated IV. The anesthesiologist was in charge of further management of this including reversal of her paralytic, it remains unclear as to how much of the paralytic is in her subcutaneous tissue and how much of it has already been absorbed systemically versus will be absorbed systemically. I spoke with Dr. Samuel about this. He is going to watch the patient in the recovery room for several hours. He said that he would call me and let me know if she has any concerns about the late onset of action of the infiltrated paralytic and, in that case, he would recommend that she go to be ICU for closer monitoring. At this point, he thinks she would be safe for admission to the floor. I have decided to keep her overnight given the difficulty of the surgery and her limited mental capacity to describe if she was having any acute problems. This was discussed with her caregiver from a nursing home that was present this morning. MO FAGAN MD DR: RUTHY/kaushal JOB#: [id number] / [id number] AIRANI Kaur MD
[2016-09-23] MEDS: LOXAPINE SUCCINATE 25 MG CAPSULE PO SCH ×2 (17:59→20:46)
[2016-09-23] MEDS: HYDROCODONE/APAP 5/325MG TABLET. PO PRN (17:59)
[2016-09-23] MEDS: CETIRIZINE HCL 10 MG TABLET. PO SCH (17:59)
[2016-09-23] MEDS: ESCITALOPRAM 10 MG TABLET. PO SCH (17:59)
[2016-09-23] MEDS: LEVETIRACETAM 500 MG TABLET PO SCH ×2 (17:59→20:46)
[2016-09-23] MEDS: FAMOTIDINE 20 MG TABLET. PO SCH ×2 (17:59→20:46)
[2016-09-23] MEDS: SENNOSIDES/DOCUSATE 8.6/50MG TABLET. PO SCH (20:46)
[2016-09-24 03:28] VITALS: BP 108/66
[2016-09-24] MEDS: ALBUTEROL SULFATE 2.5 MG/3 ML NEBU. NEB SCH (03:56)
[2016-09-24] MEDS ORDERED: ONDANSETRON PF 4 MG/2 ML VIAL. IV PRN (05:04)
[2016-09-24 07:00] VITALS: BP 143/98
[2016-09-24] MEDS ORDERED: FAMOTIDINE 20 MG TABLET. ONE (08:22)
[2016-09-24] MEDS: CETIRIZINE HCL 10 MG TABLET. PO SCH (08:35)
[2016-09-24] MEDS: LEVETIRACETAM 500 MG TABLET PO SCH (08:35)
[2016-09-24] MEDS: LOXAPINE SUCCINATE 25 MG CAPSULE PO SCH (08:35)
[2016-09-24] MEDS: ESCITALOPRAM 10 MG TABLET. PO SCH (08:35)
[2016-09-24] MEDS: SENNOSIDES/DOCUSATE 8.6/50MG TABLET. PO SCH (08:35)
[2016-09-24] MEDS: FAMOTIDINE 20 MG TABLET. PO SCH (08:36)
[2016-09-24] MEDS: HYDROCODONE/APAP 5/325MG TABLET. PO PRN ×2 (08:36→12:29)
--- NOTE | 2016-09-24 09:49 | PDOC ---
Provider Note Provider Note pepper po. alert. afeb vss abd soft nd approp mild tender bandages dry a/p dc home MO FAGAN MD Sep 24, 2016 09:49
[2016-09-24 11:00] VITALS: BP 134/81
--- NOTE | 2016-09-24 14:03 | PATHOLOGY ---
PATHOLOGY REPORT * * * * * * * * FINAL DIAGNOSIS: Gallbladder, cholecystectomy: - Acute and chronic cholecystitis. - Cholelithiasis. (SKM:mary; d/t: 09/24/2016) REPORT ELECTRONICALLY SIGNED BY: Steven Dunne M.D. DATE/TIME: 09/24/2016 14:02 * * * * * * * * GROSS PATHOLOGY: Received in formalin labeled "Ashley Canales - gallbladder and contents," is a 9.8 x 3.7 x 3.3 cm, intact gallbladder with pink-oconnor, diffusely hemorrhagic, and wrinkled serosal surfaces with adhesions. Opening the gallbladder reveals bright red to pink-oconnor, granular, and trabeculated mucosa and an average wall thickness of 0.4 cm. Multiple yellow-green and multifaceted calculi ranging from 0.3-0.8 cm in greatest dimension are present and no masses are noted grossly. Roll Grinder Operator sections from the body and fundus are submitted along with the proximal margin in cassette A1. (TTL; 09/23/2016) INITIAL CPT CODE(S): A; 15330 Professional services [place] [address] Technical services performed by [facility] at [address] [place] [address], [facility] [[email or web address]] [address] [address]. SPECIMEN(S) RECEIVED: A.Gallbladder and contents CLINICAL HISTORY: Cholelithiasis PATIENT: ASHLEY CANALES /AGE: 3 1985 (Age: 31) PATIENT #: [id number] ALT CASE #: SPECIMEN COLLECTION DATE: 09/23/2016 SPECIMEN RECEIVED DATE: 09/23/2016 [facility] - [address] [place] [address] - PHONE: [phone] * * * END OF REPORT * * *
== END 2016-09-24 12:45 | disposition home or self-care (01) ==
LOC: SURG 06:40 → 4 NORTH 10:35
PROVIDERS: ADMIT Surgery; ATTEND Surgery
DX: K80.10 Calculus of gallbladder with chronic cholecystitis without obstruction (principal); K66.0 Peritoneal adhesions (postprocedural) (postinfection)
CPT/HCPCS: 36415; 47563; 74300; 82947; 84702; 96374; C1782; G0378; G0379; J0171; J0330; J0690; J0780; J1100; J1170; J2250; J2270; J2704; J2710; J3010; J3490; J7030; Q9967; J2405

== ENCOUNTER → 2017-01-12 | Outpatient (CLI) | payer OTHER ==
[~2017-01-12] MED LIST changes: -ESCI20TA PO; +ESCITALOPRAM OX20 MG PO; +HYDR-971 PO; +POLY17PO29 PO; -POLY17PO5 PO
--- NOTE | 2017-01-18 20:59 | EEG ---
DATE OF SERVICE: 01/12/2017 EEG NUMBER: [id number]. OBJECTIVE: This is a 31-year-old -[place] female patient with history of seizure. EEG was requested to evaluate the seizure activity. METHODS: Twenty electrodes were applied according to the international 10-20 electrode placement system. EKG monitoring, hyperventilation, intermittent photic stimulation, monopolar and bipolar montages are routinely utilized. The record was obtained on a digital system with video monitoring. FINDINGS: 1. Background: The patient was recorded in the awake and drowsy states. No actual sleep state was recorded. The overall background amplitude is 5-10 microvolts. A posterior dominant rhythm of 8 Hz is observed. 2. Abnormalities: No specific epileptiform discharge or electrographic seizure is seen. Significant muscle artifact noted throughout the entire recording. 3. Activation: Hyperventilation was not performed because the patient was not co-operative. Intermittent photic stimulation was performed with photic driving. No specific epileptiform discharge or electrographic seizure induced by intermittent photic stimulation. IMPRESSION: This EEG is a borderline study for the awake and drowsy states. No actual sleep state was recorded. Significant muscle artifact noted throughout the entire recording. No focal, lateralizing, specific epileptiform discharge, or electrographic seizure is seen. Suggest to repeat the EEG due to significant muscular artifact. THO AMBRIZ MD DR: Clif JOB#: [id number] / [id number]
== END | disposition home or self-care (01) ==
LOC: RT 10:11
PROVIDERS: ATTEND Psychiatry & Neurology Neurology
DX: R56.9 Unspecified convulsions (principal)
CPT/HCPCS: 95816

== ENCOUNTER → 2017-02-15 | Outpatient (CLI) | payer OTHER ==
[2017-02-15 12:15] LABS: CREATININE 1.1 mg/dL (0.6-1.0); GFR 70.1
== END | disposition home or self-care (01) ==
LOC: LAB 11:25
PROVIDERS: ATTEND Psychiatry & Neurology Neurology
DX: R56.9 Unspecified convulsions (principal)
CPT/HCPCS: 36415; 82565; 84450; 84460; 84520

== ENCOUNTER → 2018-03-18 | Outpatient (CLI) | payer OTHER ==
--- NOTE | 2018-03-18 18:18 | EEG ---
DATE OF SERVICE: 03/18/2018 EEG NUMBER: [id number]. OBJECTIVE: This is a 32-year-old -Turk[place] female patient with history of seizure or seizure-like episodes. EEG was requested to evaluate seizure activity. METHODS: Twenty electrodes were applied according to the international 10-20 electrode placement system. EKG monitoring, hyperventilation, intermittent photic stimulation, monopolar and bipolar montages are routinely utilized. The record was obtained on a digital system with video monitoring. FINDINGS: 1. Background: The patient was recorded in the awake and drowsy states. No sleep state was recorded. The overall background amplitude is 5-10 microvolts. A posterior dominant rhythm of 8 Hz is observed. 2. Abnormalities: No specific epileptiform discharge or electrographic seizure is seen. No focal or diffuse slowing. Significant muscle artifact noted. 3. Activation: Hyperventilation was performed with fair efforts and normal response. Intermittent photic stimulation was performed with photic driving. No specific epileptiform discharge or electrographic seizures induced by hyperventilation or intermittent photic stimulation. IMPRESSION: This EEG is within the normal limits of the study for the awake and drowsy states. No sleep state was recorded. No focal, lateralizing, specific epileptiform discharge, or electrographic seizure is seen. Significant muscle artifact noted. THO AMBRIZ MD DR: PARISA/kaushal JOB#: [id number] / [id number] JENNIFER
== END | disposition home or self-care (01) ==
LOC: RT 10:17
PROVIDERS: ATTEND Psychiatry & Neurology Neurology
DX: G40.909 Epilepsy, unspecified, not intractable, without status epilepticus (principal); K21.9 Gastro-esophageal reflux disease without esophagitis
CPT/HCPCS: 95816

== ENCOUNTER → 2019-09-01 | Outpatient (CLI) | payer MEDICAID ==
[~2019-09-01] MED LIST changes: +HYDR-3164 PO; -HYDR-971 PO
--- NOTE | 2019-09-04 23:21 | EEG ---
DATE OF SERVICE: 09/01/2019 EEG NUMBER: OBJECTIVE: This is a 33-year-old -[place] Citizen female patient with history of seizure and intellectual disability. EEG was requested to evaluate seizure activity. METHODS: Twenty electrodes were applied according to the international 10-20 electrode placement system. EKG monitoring, hyperventilation, intermittent photic stimulation, monopolar and bipolar montages are routinely utilized. The record was obtained on a digital system with video monitoring. FINDINGS: 1. Background: The patient was recorded mainly in the drowsy and sleep states. No well awake state was recorded. The overall background amplitude is 5-15 microvolts. A posterior dominant rhythm of 7-8 Hz is occasionally seen. 2. Abnormalities: No specific epileptiform discharge or electrographic seizure is seen. No focal or diffuse slowing. 3. Activation: Hyperventilation was not performed because the patient was not able to follow the commands. Intermittent photic stimulation was performed with photic driving. No specific epileptiform discharge or electrographic seizure induced by intermittent photic stimulation. IMPRESSION: This EEG is a borderline study for mainly drowsy and sleep states. No focal, lateralizing, specific epileptiform discharge or electrographic seizure is seen. THO AMBRIZ MD DR: PARISA/kaushal JOB#: [id number] / [id number] JENNIFER
== END | disposition home or self-care (01) ==
LOC: RT 10:30
PROVIDERS: ATTEND Psychiatry & Neurology Neurology
DX: R56.9 Unspecified convulsions (principal)
CPT/HCPCS: 95816

== ENCOUNTER → 2020-09-03 | Outpatient (CLI) | payer MEDICAID ==
--- NOTE | 2020-09-03 12:28 | EEG ---
DATE OF SERVICE: 09/03/2020 Electroencephalogram number [id number], performed on 09/03/2020. OBJECTIVE: The patient is a 34-year-old female with possible seizures and staring spells. DESCRIPTION: This is a digital study. Electrodes are placed according to the international 10-20 system. Bipolar and referential montages are available. Activation procedures typically include hyperventilation and intermittent photic stimulation. INTERPRETATION: The background is obscured by continuous muscle activity as the patient would not cooperate with the testing and would not relax. I can discern a 7-8 Hz, 20-50 microvolt background activity that does react to eye opening. Hyperventilation and intermittent photic stimulation are noncontributory. Sleep is not achieved. IMPRESSION: This electroencephalogram with the patient awake only is abnormal because of a mild, diffuse disturbance of cerebral activity as may be seen in any of a variety of toxic or metabolic encephalopathies, but there is no evidence of any focal, paroxysmal, or epileptiform activity. Thank you for letting us help with the patient's care. IAN HARVEY MD DR: JUAN/kaushal JOB#: [id number] / [id number] CAMILO Roberts
== END ==
LOC: RT 09:31
PROVIDERS: ATTEND Nurse Practitioner Family
DX: R56.9 Unspecified convulsions (principal)
CPT/HCPCS: 95816

== ENCOUNTER 2021-02-22 18:18 | Emergency (ER) | payer MEDICAID ==
[~2021-02-22] VITALS: Ht 152.4 cm; Wt 90.9 kg
--- NOTE | 2021-02-22 23:49 | ED.ADGEN ---
Past Medical History Additional Past Medical Histor: MENTAL DEFICITS Past Surgical History: No Surgical History Smoking Status: Never Smoker Alcohol Use: None General Adult EDM: Chief Complaint: FEVER HPI: HPI: Patient is a 35 year old female brought in by caregiver for fever and cough for the past 4 days. Patient lives in a fdc due to her intellectual delay and has had multiple exposures to Covid patients and another one who tested positive for influenza. Patient is nonverbal and history provided by caregiver. Patient has not had her Covid vaccines. Review of Systems: Review of Systems: All other systems within normal limits except for as noted in the HPI Current Medications: Current Medications Medications (Trade) Dose Ordered Sig/Matty Start Time Stop Time Status Last Admin Dose Admin Acetaminophen (Tylenol) 1,000 mg 1X ONCE 02/23/21 00:15 02/23/21 00:16 DC 02/23/21 01:16 1,000 MG Acetaminophen/ Hydrocodone Bitart (Lortab 5/325) 1 tab 1X ONCE 02/23/21 04:00 02/23/21 04:01 DC 02/23/21 03:30 1 TAB Info (CONTRAST GIVEN -- Rx MONITORING) 1 each PRN DAILY PRN 02/23/21 02:15 02/25/21 02:14 Iohexol (Omnipaque 350 Mg/ml) 100 ml 1X ONCE 02/23/21 02:30 02/23/21 02:31 DC 02/23/21 03:06 100 ML Sodium Chloride 1,000 ml @ 1,000 mls/hr 1X ONCE 02/23/21 00:15 02/23/21 01:14 DC 02/23/21 00:45 1,000 MLS/HR Allergies: Allergies: Allergies Coded Allergies Type Severity Reaction Last Updated Verified No Known Drug Allergies 09/23/16 No Physical Exam: PE: Constitutional: Well developed, well nourished, no acute distress, non-toxic appearance. [] HENT: Normocephalic, atraumatic, bilateral external ears normal, nose normal. [] Eyes: PERRLA, conjunctiva normal, no discharge. [] Neck: No rigidity, supple, no stridor. [] Cardiovascular: Regular rate and rhythm, brisk cap refill [] Lungs & Thorax: Non labored symmetric respirations, no tachypnea or respiratory distress [] Abdomen: Soft, nondistended. Skin: Warm, dry, no erythema, no rash. [] Back: Unremarkable Extremities: No deformities, range of motion grossly intact, no lower extremity edema [] Neurologic: Alert and oriented X 3, no focal deficits noted. [] Psychologic: Affect normal, judgement normal, mood normal. [] Current Patient Data: Labs: Laboratory Tests Test 02/22/21 23:55 02/23/21 00:40 02/23/21 00:56 02/23/21 01:02 Influenza Type A Antigen Negative (NEGATIVE) Influenza Type B Antigen Negative (NEGATIVE) D-Dimer (Gilda) 0.60 ug/mlFEU (0.00-0.50) H Urine Collection Type Unknown Urine Color Yellow Urine Clarity Clear Urine pH 5.0 (<5.0-8.0) Urine Specific [place] 1.015 (1.000-1.030) Urine Protein Negative mg/dL (NEG-TRACE) Urine Glucose (UA) Negative mg/dL (NEG) Urine Ketones (Stick) Negative mg/dL (NEG) Urine Blood Moderate (NEG) Urine Nitrite Negative (NEG) Urine Bilirubin Negative (NEG) Urine Urobilinogen Dipstick 0.2 mg/dL (0.2 mg/dL) Urine Leukocyte Esterase Negative (NEG) Urine RBC 0 /HPF (0-2) Urine WBC 1-4 /HPF (0-4) Urine Squamous Epithelial Cells Mod /LPF Urine Bacteria Moderate /HPF (0-FEW) Urine Mucus Mod /LPF POC Urine HCG, Qualitative Hcg negative (Negative) Test 02/23/21 01:20 02/23/21 01:25 White Blood Count 6.1 x10^3/uL (4.0-11.0) Red Blood Count 4.16 x10^6/uL (3.50-5.40) Hemoglobin 12.3 g/dL (12.0-15.5) Hematocrit 36.7 % (36.0-47.0) Mean Corpuscular Volume 88 fL (79-100) Mean Corpuscular Hemoglobin 30 pg (25-35) Mean Corpuscular Hemoglobin Concent 34 g/dL (31-37) Red Cell Distribution Width 13.4 % (11.5-14.5) Platelet Count 396 x10^3/uL (140-400) Neutrophils (%) (Auto) 47 % (31-73) Lymphocytes (%) (Auto) 37 % (24-48) Monocytes (%) (Auto) 16 % (0-9) H Eosinophils (%) (Auto) 0 % (0-3) Basophils (%) (Auto) 0 % (0-3) Neutrophils # (Auto) 2.9 x10^3/uL (1.8-7.7) Lymphocytes # (Auto) 2.3 x10^3/uL (1.0-4.8) Monocytes # (Auto) 1.0 x10^3/uL (0.0-1.1) Eosinophils # (Auto) 0.0 x10^3/uL (0.0-0.7) Basophils # (Auto) 0.0 x10^3/uL (0.0-0.2) Sodium Level 138 mmol/L (136-145) Potassium Level 4.0 mmol/L (3.5-5.1) Chloride Level 103 mmol/L (98-107) Carbon Dioxide Level 24 mmol/L (21-32) Anion Gap 11 (6-14) Blood Urea Nitrogen 6 mg/dL (7-20) L Creatinine 1.1 mg/dL (0.6-1.0) H Estimated GFR (Cockcroft-Gault) 68.4 BUN/Creatinine Ratio 5 (6-20) L Glucose Level 96 mg/dL (70-99) Calcium Level 8.6 mg/dL (8.5-10.1) Total Bilirubin 0.1 mg/dL (0.2-1.0) L Aspartate Amino Transferase (AST) 26 U/L (15-37) Alanine Aminotransferase (ALT) 40 U/L (14-59) Alkaline Phosphatase 51 U/L (46-116) Troponin I Quantitative < 0.017 ng/mL (0.000-0.055) Total Protein 7.0 g/dL (6.4-8.2) Albumin 3.5 g/dL (3.4-5.0) Albumin/Globulin Ratio 1.0 (1.0-1.7) SY-Yag-E-Type Natriuretic Peptide 187 pg/mL (0-124) H Laboratory Tests 02/23/21 01:20 Laboratory Tests 02/23/21 01:20 Vital Signs: Vital Signs Date Time Temp Pulse Resp B/P (MAP) Pulse Ox O2 Delivery O2 Flow Rate FiO2 02/23/21 03:30 95 Room Air 02/22/21 23:12 114 24 149/88 (108) 02/22/21 23:11 98.6 98.6 EKG: EKG: Sinus rhythm, heart rate 110 bpm, normal axis, no ST elevation or depression, no ectopy. [] Heart Score: C/O Chest Pain: No HEART Score for Chest Pain: HEART Score for Chest Pain Response (Comments) Value History Slighlty/Non-Suspicious 0 ECG Normal 0 Age < 45 0 Risk Factors No Risk Factors 0 Troponin < Normal Limit 0 Total 0 Risk Factors: Risk Factors: DM, Current or recent (<one month) smoker, HTN, HLP, family history of CAD, obesity. Risk Scores: Score 0 - 3: 2.5% MACE over next 6 weeks - Discharge Home Score 4 - 6: 20.3% MACE over next 6 weeks - Admit for Clinical Observation Score 7 - 10: 72.7% MACE over next 6 weeks - Early Invasive Strategies Radiology/Procedures: Radiology/Procedures: [facility] [address] [place] [address] IMAGING REPORT Signed PATIENT: ASHLEY CANALES ACCOUNT: [id number] : 1985 LOCATION: ER AGE: 35 SEX: F EXAM STATUS: REG ER ORD. PHYSICIAN: DEJA CALVERT MD REASON: fever, elevated dimer, OMNI 350 100 ML IV PROCEDURE: CT ANGIO CHEST W ABD PEL W/ EXAM: CT CHEST, ABDOMEN, AND PELVIS WITHOUT CONTRAST INDICATION: Fever, elevated d-dimer, Covid positive COMPARISON: CT abdomen pelvis 08/05/2069 TECHNIQUE: Helical CT imaging performed of the chest, abdomen and pelvis. The exam was initially performed after the administration of 100 mL Omnipaque 350 contrast, however all of the contrast extravasated during the injection and the CT was therefore read as a noncontrast exam. One or more of the following ind ividualized dose reduction techniques were utilized for this examination: 1. Automated exposure control 2. Adjustment of the mA and/or kV according to patient size 3. Use of iterative reconstruction technique. FINDINGS: CHEST: Thyroid gland and thoracic inlet: Visualized portion of thyroid gland is normal. Heart and great vessels: Heart is normal in size. No pericardial effusion. Thoracic aorta is normal in caliber. Mediastinum and [place]: No lymphadenopathy. Lungs and pleura: The lungs are clear. No pleural effusion or pneumothorax. Chest wall and axillae: No axillary lymphadenopathy. Bones: No acute osseous abnormality. ABDOMEN AND PELVIS: Liver: Unremarkable noncontrast appearance the liver. Gallbladder/Biliary Tree: The gallbladder is contracted. Bile ducts are normal. Pancreas: Pancreas is unremarkable. Spleen: Spleen is normal. Adrenal Glands: Adrenal glands are normal. Kidneys/Ureters/Bladder: Kidneys, ureters, and bladder are normal. Reproductive Organs: Uterus is anteverted. No adnexal mass. Stomach, small bowel, and colon: The stomach, small bowel, and colon are unremarkable. Vasculature: No aortic aneurysm. Lymph Nodes: No lymphadenopathy. Peritoneum and retroperitoneum: No free fluid or free air. Bones: No acute osseous abnormality. IMPRESSION: 1. Contrast extravasated during the injection and therefore the exam was a noncontrast exam. Unable to evaluate the pulmonary arteries. 2. No acute abnormality of the chest, abdomen, or pelvis. Electronically signed by: Deja Garcia MD (02/23/2021 4:31 AM) [id number] DICTATED and SIGNED BY: DEJA GARCIA MD DATE: 02/23/21 [id number] 0 [] Course & Med Decision Making: Course & Med Decision Making Patient is a difficult stick and IV fluids were given contrast for CTA, on repeat line it again blew. Discussed with care possibility of PE, concern is due to patient's heart rate. However patient has no respiratory distress or tachypnea with a mild elevation in her D-dimer. Discussed return precautions and close monitoring at the facility. Patient not tolerating IV attempts well and ventilation scan is of low yield. Dragon Disclaimer: Dragon Disclaimer: This electronic medical record was generated, in whole or in part, using a voice recognition dictation system. Departure Departure Impression: Primary Impression: Person under investigation for COVID-19 Disposition: HOME / SELF CARE / HOMELESS Condition: STABLE Referrals: AMAIRANI NEWSOME MD (PCP) Patient Instructions: Inhaler, Using Your Additional Instructions: You have been tested for or diagnosed with COVID-19. It is an infection caused by a new type of coronavirus. COVID-19 will cause cold-like or mild flu symptoms in most. It can cause more severe symptoms like problems breathing in some. There is no treatment for COVID-19. The body will clear the infection over time. Self-care will help to ease discomfort. Steps to Take: Self-Care Rest as needed. Healthy habits may help you feel better. Steps include: Choose healthy foods including fruits and vegetables. Drink water throughout the day. Get plenty of sleep each night. If you smoke, try to quit. It may ease breathing. Avoid alcohol. Keep Others Healthy The virus can spread to others. Droplets are released every time you sneeze or cough. The droplets can get into the mouth, nose, or eyes of people near you and lead to infection. To lower the chances of spreading COVID-19 to others: Stay at home until your doctor has said it is safe to leave. If you tested positive this will mean staying isolated until both of the following are true: At least 7 days have passed since the start of illness. You are free of fever for at least 72 hours without the use of medicine. During this time: - Avoid public areas, events, or transportation. Do not return to work or school until your doctor has said it is safe to do so. - Call ahead if you need to go to a medical center. Let them know you may have COVID-19. It will help them guide you where to go. They may also ask you to wear a facemask when you come to the office. - If you call for emergency medical services, let them know you may have COVID- 19. While at home: - Try to avoid close contact with others. Stay about 6 feet away. - If possible, spend most of your time in a separate room from others. - Use a face mask if you will be in close contact with others such as sharing a room or vehicle. - Have someone wipe down common surfaces in the home. Use household heater installer e very day on areas like doorknobs, counters, or sinks. - Cough or sneeze into a tissue. Throw the tissue away right after use. If a tissue is not available, cough or sneeze into your elbow. - Wash your hands often. Wash them after sneezing or coughing. Use soap and water and wash for at least 20 seconds. Alcohol based hand commercial or institutional cleaner can be used if soap and water is not available. - Do not prepare food for others. Avoid sharing personal items like forks, spoons, or toothbrushes. - Avoid close contact with pets while you are sick. There is no evidence of the virus passing to pets. This is a safety step until more is known about this virus. Isolation can be frustrating. Social interaction can help. Keep in touch with friends and family through phone and tech options. You can still interact with others in your home, just keep a safe distance of about 6 feet. Follow-up: Your doctors office will check in with you to see if there are any changes in your health. You may be asked to keep track of symptoms to share with them. They will also let you know when you are clear to be in public again. Problems to Look Out For: Contact your doctor if your recovery is not going as you expect. Get emergency care if you have problems such as: - Trouble breathing - Nonstop chest pain or pressure - Changes in awareness, confusion, or problems waking - Lips or face have bluish color - Worsening of symptoms If you think you have an emergency, call for emergency medical services right away. As taken from [facility] Albuterol Sulfate (PROAIR HFA INHALER) 8.5 Gm Hfa.aer.ad 2 PUFF IH PRN Q4-6HRS PRN for wheezing for 21 Days, #1 INHALER 0 Refills Prov: DEJA CALVERT MD 02/23/21 DEJA CALVERT MD Feb 22, 2021 23:49
[2021-02-23] MEDS ORDERED: IV NORMAL SALINE 1000ML BAG 1,000 ML IV ONE (00:15)
[2021-02-23] MEDS ORDERED: ACETAMINOPHEN 500 MG TABLET PO ONE (00:15)
[2021-02-23 00:22] LABS: INFLUENZA A PATIENT NEGATIVE (NEGATIVE); INFLUENZA B PATIENT NEGATIVE (NEGATIVE)
[2021-02-23 01:06] LABS: BILIRUBIN,URINE NEGATIVE (NEG); CLARITY,URINE CLEAR; COLOR,URINE YELLOW; NITRITE,URINE NEGATIVE (NEG); PROTEIN,URINE NEGATIVE (NEG-TRACE); UROBILINOGEN,URINE 0.2 mg/dL (0.2 mg/dL)
--- NOTE | 2021-02-23 01:06 | EKG ---
[facility] [address] [place] [address] Test Date: 2021-02-23 Test Time: 00:30:45 Pat Name: ASHLEY CANALES Department: Room: Gender: F Anesthesiologist Physician: : 1985 Requested By: EVANS CALVERT Order Number: [id number] Reading MD: Measurements Intervals [place] Rate: 110 P: 10 HI: 124 QRS: 62 QRSD: 68 T: 34 QT: 296 QTc: 405 Interpretive Statements No previous ECG available for comparison
[2021-02-23 01:15] LABS: BACTERIA,URINE MODERATE /HPF (0-FEW); RBC,URINE 0 /HPF (0-2)
[2021-02-23 01:33] LABS: BASO % 0 % (0-3); EOS % 0 % (0-3); HEMATOCRIT 36.7 % (36.0-47.0); HEMOGLOBIN 12.3 g/dL (12.0-15.5); LYMPH # 2.3 x10^3/uL (1.0-4.8); LYMPH % 37 % (24-48); MEAN CORPUSCULAR HEMOGLOBIN 30 pg (25-35); MEAN CORPUSCULAR HGB CONC 34 g/dL (31-37); MEAN CORPUSCULAR VOLUME 88 fL (79-100); MONO % 16 % (0-9); NEUT # 2.9 x10^3/uL (1.8-7.7); NEUT % 47 % (31-73); PLATELET COUNT 396 x10^3/uL (140-400); RED BLOOD COUNT 4.16 x10^6/uL (3.50-5.40); RED CELL DISTRIBUTION WIDTH 13.4 % (11.5-14.5); WHITE BLOOD COUNT 6.1 x10^3/uL (4.0-11.0)
[2021-02-23 01:52] LABS: CALCIUM 8.6 mg/dL (8.5-10.1); CREATININE 1.1 mg/dL (0.6-1.0); GFR 68.4
[2021-02-23 01:56] LABS: ALBUMIN 3.5 g/dL (3.4-5.0); TOTAL BILIRUBIN 0.1 mg/dL (0.2-1.0)
[2021-02-23] MEDS ORDERED: CONTRAST GIVEN. MC PRN (02:15)
[2021-02-23] MEDS ORDERED: IOHEXOL 350 MG/ML 100 ML VIAL. IV ONE (02:30)
[2021-02-23] MEDS ORDERED: HYDROcodone/APAP 5/325MG 1 TAB TABLET PO ONE ×2 (04:00→05:30)
--- NOTE | 2021-02-23 04:34 | RAD ---
EXAM: CT CHEST, ABDOMEN, AND PELVIS WITHOUT CONTRAST INDICATION: Fever, elevated d-dimer, Covid positive COMPARISON: CT abdomen pelvis 08/05/2069 TECHNIQUE: Helical CT imaging performed of the chest, abdomen and pelvis. The exam was initially perf ormed after the administration of 100 mL Omnipaque 350 contrast, however all of the contrast extravas ated during the injection and the CT was therefore read as a noncontrast exam. One or more of the [facility] individualized dose reduction techniques were utilized for this examination: 1. Automated exposure control 2. Adjustment of the mA and/or kV according to patient size 3. Use of iterative reconstruction technique. FINDINGS: CHEST: Thyroid gland and thoracic inlet: Visualized portion of thyroid gland is normal. Heart and great vessels: Heart is normal in size. No pericardial effusion. Thoracic aorta is normal i n caliber. Mediastinum and [place]: No lymphadenopathy. Lungs and pleura: The lungs are clear. No pleural effusion or pneumothorax. Chest wall and axillae: No axillary lymphadenopathy. Bones: No acute osseous abnormality. ABDOMEN AND PELVIS: Liver: Unremarkable noncontrast appearance the liver. Gallbladder/Biliary Tree: The gallbladder is contracted. Bile ducts are normal. Pancreas: Pancreas is unremarkable. Spleen: Spleen is normal. Adrenal Glands: Adrenal glands are normal. Kidneys/Ureters/Bladder: Kidneys, ureters, and bladder are normal. Reproductive Organs: Uterus is anteverted. No adnexal mass. Stomach, small bowel, and colon: The stomach, small bowel, and colon are unremarkable. Vasculature: No aortic aneurysm. Lymph Nodes: No lymphadenopathy. Peritoneum and retroperitoneum: No free fluid or free air. Bones: No acute osseous abnormality. IMPRESSION: 1. Contrast extravasated during the injection and therefore the exam was a noncontrast exam. Unable t o evaluate the pulmonary arteries. 2. No acute abnormality of the chest, abdomen, or pelvis. Electronically signed by: Deja Garcia MD (02/23/2021 4:31 AM) [id number]
--- NOTE | 2021-02-23 04:37 | RAD ---
EXAM: XR CHEST 2V 02/22/2021 12:00 AM CLINICAL INDICATION: Fever COMPARISON: None TECHNIQUE: PA upright view of the chest FINDINGS: The heart and mediastinum are normal. Lungs are adequately expanded. There is no consolida tion, pleural effusion, or pneumothorax. There is gaseous distention of bowel in the upper abdomen. IMPRESSION: No acute cardiopulmonary abnormality. Electronically signed by: Deja Garcia MD (02/23/2021 4:35 AM) [id number]
[2021-02-23] MEDS ORDERED: ALBU2.5V8 IH (04:57)
[2021-02-23 05:04] VITALS: BP 150/90
--- NOTE | 2021-02-24 13:48 | NUR ---
IP: Pt is in [facility], notified Elina at [facility], of covid positive test. Results also faxed to [phone].
== END 2021-02-23 05:10 | disposition home or self-care (01) ==
LOC: ER 18:18
DX: U07.1 COVID-19 (principal); R07.89 Other chest pain; R79.1 Abnormal coagulation profile
CPT/HCPCS: 36415; 71046; 71275; 74177; 80053; 81001; 81025; 83880; 84484; 85025; 85379; 87086; 87804; 93005; 96360; 99285; J7030; Q9967; U0003; U0005

== ENCOUNTER 2021-02-25 11:42 | Emergency (ER) | payer MEDICAID ==
[~2021-02-25] VITALS: Ht 154.9 cm; Wt 90.9 kg
[~2021-02-25 11:42] MED LIST changes: +ALBU2.5V8 IH
[2021-02-25] MEDS ORDERED: IV NORMAL SALINE 1000ML BAG 1,000 ML IV ONE (12:15)
--- NOTE | 2021-02-25 12:15 | ED.ADGEN ---
Past Medical History Additional Past Medical Histor: MENTAL DEFICITS Past Surgical History: No Surgical History Smoking Status: Never Smoker Alcohol Use: None General Adult EDM: Chief Complaint: FEVER HPI: HPI: Patient is a 35-year-old female who arrives with her caregiver to the emergency department with continued shortness of air as well as fevers. Patient has a known history of coronavirus and was evaluated here Wednesday evening and discharged home. Unfortunately since that time the patient's breathing has det eriorated and her fevers have not been very well controlled. The patient has been receiving Tylenol every 4 hours for fevers that have been as high as 103 F. Patient does have Down syndrome and resides in a fdc where other residents have tested positive for coronavirus. She tells me that she is not hurting but she does not feel well. She is awake, alert and ill-appearing. Review of Systems: Review of Systems: Constitutional: Reports fever. Denies chills. [] Eyes: Denies change in visual acuity. [] HENT: Denies nasal congestion or sore throat. [] Respiratory: Reports cough or shortness of breath. [] Cardiovascular: Denies chest pain or edema. [] GI: Denies abdominal pain, nausea, vomiting, bloody stools or diarrhea. [] : Denies dysuria. [] Musculoskeletal: Denies back pain or joint pain. [] Integument: Denies rash. [] Neurologic: Denies headache, focal weakness or sensory changes. [] Endocrine: Denies polyuria or polydipsia. [] Lymphatic: Denies swollen glands. [] Psychiatric: Denies depression or anxiety. [] Current Medications: Current Medications Medications (Trade) Dose Ordered Sig/Matty Start Time Stop Time Status Last Admin Dose Admin Ibuprofen (Motrin) 800 mg 1X ONCE 02/25/21 13:00 02/25/21 13:01 DC Levofloxacin/ Dextrose 150 ml @ 100 mls/hr 1X ONCE 02/25/21 12:15 02/25/21 13:44 DC Sodium Chloride 1,000 ml @ 1,000 mls/hr 1X ONCE 02/25/21 12:15 02/25/21 13:14 DC 02/25/21 12:15 1,000 MLS/HR Allergies: Allergies: Allergies Coded Allergies Type Severity Reaction Last Updated Verified No Known Drug Allergies 3/29/17 No Physical Exam: PE: Constitutional: Ill-appearing. Otherwise well-developed and well-nourished, non-toxic appearance. [] HENT: Normocephalic, atraumatic, bilateral external ears normal, oropharynx moist, no oral exudates, nose normal. [] Eyes: PERRLA, EOMI, conjunctiva normal, no discharge. [] Neck: Normal range of motion, no tenderness, supple, no stridor. [] Cardiovascular: Tachycardia and regular. No murmur [] Lungs & Thorax: Diminished breath sounds bilaterally with faint crackles. [] Abdomen: Bowel sounds normal, soft, no tenderness, no masses, no pulsatile mass es. [] Skin: Warm, dry, no erythema, no rash. [] Back: No tenderness, no CVA tenderness. [] Extremities: No tenderness, no cyanosis, no clubbing, ROM intact, no edema. [] Neurologic: Alert and oriented X 3, normal motor function, normal sensory function, no focal deficits noted. [] Psychologic: Affect normal, judgement normal, mood normal. [] Current Patient Data: Labs: Laboratory Tests Test 02/25/21 12:28 02/25/21 13:20 White Blood Count 3.6 x10^3/uL (4.0-11.0) L Red Blood Count 4.12 x10^6/uL (3.50-5.40) Hemoglobin 12.2 g/dL (12.0-15.5) Hematocrit 35.8 % (36.0-47.0) L Mean Corpuscular Volume 87 fL (79-100) Mean Corpuscular Hemoglobin 30 pg (25-35) Mean Corpuscular Hemoglobin Concent 34 g/dL (31-37) Red Cell Distribution Width 13.5 % (11.5-14.5) Platelet Count 397 x10^3/uL (140-400) Neutrophils (%) (Auto) 81 % (31-73) H Lymphocytes (%) (Auto) 12 % (24-48) L Monocytes (%) (Auto) 6 % (0-9) Eosinophils (%) (Auto) 0 % (0-3) Basophils (%) (Auto) 0 % (0-3) Neutrophils # (Auto) 3.0 x10^3/uL (1.8-7.7) Lymphocytes # (Auto) 0.4 x10^3/uL (1.0-4.8) L Monocytes # (Auto) 0.2 x10^3/uL (0.0-1.1) Eosinophils # (Auto) 0.0 x10^3/uL (0.0-0.7) Basophils # (Auto) 0.0 x10^3/uL (0.0-0.2) Sodium Level 139 mmol/L (136-145) Potassium Level 4.3 mmol/L (3.5-5.1) Chloride Level 102 mmol/L (98-107) Carbon Dioxide Level 25 mmol/L (21-32) Anion Gap 12 (6-14) Blood Urea Nitrogen 8 mg/dL (7-20) Creatinine 0.8 mg/dL (0.6-1.0) Estimated GFR (Cockcroft-Gault) 98.8 BUN/Creatinine Ratio 10 (6-20) Glucose Level 109 mg/dL (70-99) H Calcium Level 8.6 mg/dL (8.5-10.1) Total Bilirubin 0.2 mg/dL (0.2-1.0) Aspartate Amino Transferase (AST) 203 U/L (15-37) H Alanine Aminotransferase (ALT) 162 U/L (14-59) H Alkaline Phosphatase 49 U/L (46-116) Troponin I Quantitative < 0.017 ng/mL (0.000-0.055) Total Protein 6.6 g/dL (6.4-8.2) Albumin 3.4 g/dL (3.4-5.0) Albumin/Globulin Ratio 1.1 (1.0-1.7) Lipase 47 U/L (73-393) L Lactic Acid Level 0.8 mmol/L (0.4-2.0) Laboratory Tests 02/25/21 12:28 Laboratory Tests 02/25/21 12:28 Vital Signs: Vital Signs Date Time Temp Pulse Resp B/P (MAP) Pulse Ox O2 Delivery O2 Flow Rate FiO2 02/25/21 14:18 98.9 101 20 132/78 (96) 95 98.9 02/25/21 12:13 Room Air EKG: EKG: EKG was obtained at 1241 hrs. reveals sinus tachycardia with a ventricular rate of 114 bpm. Intervals are normal and there are no acute ST/T wave changes to denote ischemia. [] Heart Score: C/O Chest Pain: No Risk Factors: Risk Factors: DM, Current or recent (<one month) smoker, HTN, HLP, family history of CAD, obesity. Risk Scores: Score 0 - 3: 2.5% MACE over next 6 weeks - Discharge Home Score 4 - 6: 20.3% MACE over next 6 weeks - Admit for Clinical Observation Score 7 - 10: 72.7% MACE over next 6 weeks - Early Invasive Strategies Radiology/Procedures: Radiology/Procedures: [] Impression: [facility] [address] [place] [address] IMAGING REPORT Signed PATIENT: ASHLEY CANALES ACCOUNT: [id number] : 1985 LOCATION: ER AGE: 35 SEX: F EXAM STATUS: REG ER ORD. PHYSICIAN: LESIA RIVERA DO REASON: Short of air/known Covid PROCEDURE: PORTABLE CHEST 1V Site ID: [id number] EXAMINATION: XR CHEST 1V. HISTORY: 35 years Female Reason: Short of air/known Covid . COMPARISON: February 23, 2021. Findings: There is a slight prominence of the perihilar interstitial markings more on the right side. Although this can be exaggerated by the portable AP technique, subtle interstitial infiltrates are suspected. No airspace consolidation. The heart size is normal. There is no effusion or pneumothorax. The mediastinum and [place] appear unremarkable. Impression: Suspected developing subtle interstitial infiltrates. PA and lateral views of the chest are suggested for better evaluation on follow-up exams. Electronically signed by: Kiera López MD (02/25/2021 12:38 PM) [id number] DICTATED and SIGNED BY: KIERA LÓPEZ MD DATE: 02/25/21 [id number] 0 Course & Med Decision Making: Course & Med Decision Making Pertinent Labs and Imaging studies reviewed. (See chart for details) The patient remains awake, alert and in no acute distress. The patient does not demonstrate any respiratory distress. I provided the patient with paperwork with respect to how to care for herself during this time in this paperwork will be passed on to her caregiver. Patient is also have prescription sent to her pharmacy to help assist her in recovery from coronavirus. Should the patient develop any new chest pain or becoming short of air, I advised that she return to the emergency department. She is nontoxic-appearing and resting comfortably. She stable for discharge. [] Dimitris Disclaimer: Dimitris Disclaimer: This electronic medical record was generated, in whole or in part, using a voice recognition dictation system. Departure Departure Impression: Primary Impression: COVID-19 Disposition: HOME / SELF CARE / HOMELESS Condition: STABLE Referrals: AMAIRANI NEWSOME MD (PCP) Patient Instructions: Upper Respiratory Infection, Adult Scripts Levofloxacin (LEVOFLOXACIN) 750 Mg Tablet 1 TAB PO DAILY, #7 TAB Prov: LESIA RIVERA DO 02/25/21 Albuterol Sulfate (PROAIR HFA INHALER) 8.5 Gm Hfa.aer.ad 2 PUFF IH PRN Q4-6HRS PRN for wheezing for 21 Days, #1 INHALER 0 Refills Prov: LESIA RIVERA DO 02/25/21 Prednisone (PREDNISONE) 50 Mg Tablet 1 TAB PO DAILY for 5 Days, #5 TAB Prov: LESIA RIVERA DO 02/25/21 LESIA RIVERA DO Feb 25, 2021 12:15
--- NOTE | 2021-02-25 12:40 | RAD ---
Site ID: [id number] EXAMINATION: XR CHEST 1V. HISTORY: 35 years Female Reason: Short of air/known Covid . COMPARISON: February 23, 2021. Findings: There is a slight prominence of the perihilar interstitial markings more on the right side. Although this can be exaggerated by the portable AP technique, subtle interstitial infiltrates are s uspected. No airspace consolidation. The heart size is normal. There is no effusion or pneumothorax. The mediastinum and [place] appear unremarkable. Impression: Suspected developing subtle interstitial infiltrates. PA and lateral views of the chest a re suggested for better evaluation on follow-up exams. Electronically signed by: Koby López MD (02/25/2021 12:38 PM) [id number]
[2021-02-25 12:45] LABS: BASO % 0 % (0-3); EOS % 0 % (0-3); HEMATOCRIT 35.8 % (36.0-47.0); HEMOGLOBIN 12.2 g/dL (12.0-15.5); LYMPH # 0.4 x10^3/uL (1.0-4.8); LYMPH % 12 % (24-48); MEAN CORPUSCULAR HEMOGLOBIN 30 pg (25-35); MEAN CORPUSCULAR HGB CONC 34 g/dL (31-37); MEAN CORPUSCULAR VOLUME 87 fL (79-100); MONO # 0.2 x10^3/uL (0.0-1.1); MONO % 6 % (0-9); NEUT % 81 % (31-73); PLATELET COUNT 397 x10^3/uL (140-400); RED BLOOD COUNT 4.12 x10^6/uL (3.50-5.40); RED CELL DISTRIBUTION WIDTH 13.5 % (11.5-14.5); WHITE BLOOD COUNT 3.6 x10^3/uL (4.0-11.0)
--- NOTE | 2021-02-25 12:49 | EKG ---
[facility] [address] [place] [address] Test Date: 2021-02-25 Test Time: 12:41:47 Pat Name: ASHLEY CANALES Department: Room: Gender: F Yard Supervisor: : 1985 Requested By: LESIA RIVERA Order Number: [id number] Reading MD: Measurements Intervals [place] Rate: 114 P: 60 NE: 114 QRS: 67 QRSD: 76 T: 28 QT: 312 QTc: 433 Interpretive Statements SINUS TACHYCARDIA LEFT ATRIAL ABNORMALITY ABNORMAL ECG RI6.01 No previous ECG available for comparison
[2021-02-25 12:51] LABS: CALCIUM 8.6 mg/dL (8.5-10.1); CREATININE 0.8 mg/dL (0.6-1.0); GFR 98.8; POTASSIUM 4.3 mmol/L (3.5-5.1)
[2021-02-25 12:57] LABS: ALBUMIN 3.4 g/dL (3.4-5.0); ALBUMIN/GLOBULIN RATIO 1.1 (1.0-1.7); TOTAL BILIRUBIN 0.2 mg/dL (0.2-1.0); TOTAL PROTEIN 6.6 g/dL (6.4-8.2)
[2021-02-25] MEDS ORDERED: IBUPROFEN 400 MG TABLET. PO ONE (13:00)
[2021-02-25] MEDS ORDERED: PRED50TA PO (14:05)
[2021-02-25] MEDS ORDERED: LEVO750T5 PO (14:05)
[2021-02-25] MEDS ORDERED: ALBU2.5V8 IH (14:05)
[2021-02-25 16:30] VITALS: BP 120/70
== END 2021-02-25 16:30 | disposition home or self-care (01) ==
LOC: ER 11:42
DX: U07.1 COVID-19 (principal)
CPT/HCPCS: 36415; 71045; 80053; 83605; 83690; 84484; 85025; 87040; 87205; 93005; 96365; 99285; J1956; J7030

== ENCOUNTER 2021-02-26 15:58 | Inpatient (IN) | payer MEDICAID ==
[~2021-02-26] VITALS: Ht 162.6 cm; Wt 110.0 kg
[~2021-02-26 15:58] MED LIST changes: +LEVO750T5 PO; +PRED50TA PO
--- NOTE | 2021-02-26 16:09 | PHYS DOC ---
Past Medical History Additional Past Medical Histor: MENTAL DEFICITS Past Surgical History: No Surgical History Smoking Status: Never Smoker Alcohol Use: None General Adult EDM: Chief Complaint: abnormal lab HPI: HPI: 35-year-old mentally handicapped female who lives in a fci and was diagnosed with Covid yesterday and had blood cultures performed presents to the emergency department after being called back for positive blood cultures. She reported to the ER yesterday complaining of shortness of breath and a cough which she remains complaining about today. Per report, the patient had a positive blood culture from blood cultures that were drawn in the emergency department yesterday prior to discharge that were positive for gram-positive cocci in clusters. Further history is difficult secondary to the patient's baseline mental status. She admits to shortness of breath, cough, fever, chills, congestion. She denies any abdominal pain, chest pain, urinary complaints. Review of Systems: Review of Systems: ROS is otherwise negative except for what was mentioned in the HPI Heart Score: C/O Chest Pain: No Allergies: Allergies: Allergies Coded Allergies Type Severity Reaction Last Updated Verified No Known Drug Allergies 09/23/16 No Physical Exam: PE: Constitutional: No acute distress, non-toxic appearance. HENT: Atraumatic, bilateral external ears normal, nose normal. Neck: Normal range of motion, supple, no stridor. Cardiovascular: Heart rate regular rhythm. 2+ radial pulses Lungs & Thorax: No respiratory distress, symmetrical expansion. Coarse breath sounds bilaterally Abdomen: Soft, no tenderness Skin: Warm, dry. Extremities: No tenderness, no cyanosis, ROM intact, no edema. Psychologic: Affect normal, mood normal. Current Patient Data: Labs: GRAM POSITIVE COCCI IN CLUSTERS IN 1 OF 2 BOTTLES(AEROBIC BOTTLE THIS SET);REPRESENTING ONLY 1 SET DRAWN. THE RESULT WAS CALLED TO KYRA ALLEN(ER)ON 02/26/21 AT 1435 BY Jennyfer AMOS THE BLOOD CULTURE HAS BEEN SENT TO [facility] FOR FURTHER WORKUP. Laboratory Tests Test 02/26/21 17:00 02/26/21 17:15 White Blood Count 5.3 x10^3/uL (4.0-11.0) Red Blood Count 4.17 x10^6/uL (3.50-5.40) Hemoglobin 12.5 g/dL (12.0-15.5) Hematocrit 36.5 % (36.0-47.0) Mean Corpuscular Volume 88 fL (79-100) Mean Corpuscular Hemoglobin 30 pg (25-35) Mean Corpuscular Hemoglobin Concent 34 g/dL (31-37) Red Cell Distribution Width 13.6 % (11.5-14.5) Platelet Count 392 x10^3/uL (140-400) Neutrophils (%) (Auto) 86 % (31-73) Lymphocytes (%) (Auto) 12 % (24-48) Monocytes (%) (Auto) 1 % (0-9) Eosinophils (%) (Auto) 0 % (0-3) Basophils (%) (Auto) 0 % (0-3) Neutrophils # (Auto) 4.6 x10^3/uL (1.8-7.7) Lymphocytes # (Auto) 0.7 x10^3/uL (1.0-4.8) Monocytes # (Auto) 0.1 x10^3/uL (0.0-1.1) Eosinophils # (Auto) 0.0 x10^3/uL (0.0-0.7) Basophils # (Auto) 0.0 x10^3/uL (0.0-0.2) Segmented Neutrophils % 77 % (35-66) Band Neutrophils % 15 % (0-9) Lymphocytes % 8 % (24-48) Platelet Estimate Adequate (ADEQUATE) Sodium Level 139 mmol/L (136-145) Potassium Level 4.2 mmol/L (3.5-5.1) Chloride Level 104 mmol/L (98-107) Carbon Dioxide Level 22 mmol/L (21-32) Anion Gap 13 (6-14) Blood Urea Nitrogen 5 mg/dL (7-20) Creatinine 0.8 mg/dL (0.6-1.0) Estimated GFR (Cockcroft-Gault) 98.8 Glucose Level 154 mg/dL (70-99) Lactic Acid Level 1.0 mmol/L (0.4-2.0) Calcium Level 8.5 mg/dL (8.5-10.1) Urine Collection Type Unknown Urine Color Yellow Urine Clarity Clear Urine pH 5.5 (<5.0-8.0) Urine Specific [place] 1.025 (1.000-1.030) Urine Protein 100 mg/dL (NEG-TRACE) Urine Glucose (UA) Negative mg/dL (NEG) Urine Ketones (Stick) >=80 mg/dL (NEG) Urine Blood Moderate (NEG) Urine Nitrite Negative (NEG) Urine Bilirubin Negative (NEG) Urine Urobilinogen Dipstick 0.2 mg/dL (0.2 mg/dL) Urine Leukocyte Esterase Negative (NEG) Urine RBC 1-2 /HPF (0-2) Urine WBC Rare /HPF (0-4) Urine Squamous Epithelial Cells Many /LPF Urine Bacteria Many /HPF (0-FEW) Urine Mucus Mod /LPF Urine Test Negative (NEG) Vital Signs: Vital Signs Date Time Temp Pulse Resp B/P (MAP) Pulse Ox O2 Delivery O2 Flow Rate FiO2 02/26/21 16:17 98.5 103 15 138/100 95 Room Air 98.5 Radiology/Procedures: Radiology/Procedures: PROCEDURE: CHEST AP ONLY EXAM: Chest, single view. HISTORY: Pneumonia. COMPARISON: 02/25/2021 FINDINGS: A frontal view of the chest is obtained. There has been no change in diffuse left upper lobe and bilateral lower lobe predominant interstitial infiltrate. There is no pleural effusion or pneumothorax. The heart is stable in size. IMPRESSION: No significant change in suspected multifocal pneumonia. Follow-up to confirm resolution. Electronically signed by: Hoa Rosario MD (02/26/2021 4:34 PM) Course & Med Decision Making: Course & Med Decision Making Patient will be admitted to the hospital for gram-positive sepsis, vancomycin and Zosyn were ordered. Chest x-ray appears to have pneumonia, patient does also have COVID-19. Dr. Donnelly accepted for further care. My Orders - CHALO PAULINO DO Procedure Category Date Status Time Cbc W Autodiff LAB 02/26/21 In Process 16:07 Basic Metabolic Panel LAB 02/26/21 In Process 16:07 Lactic Acid With LAB 02/26/21 In Process Reflex 16:07 Blood Culture CHRIST 02/26/21 Logged 16:07 Ua, Cult If Indicated LAB 02/26/21 Logged 16:07 Test,Urine LAB 02/26/21 Logged 16:07 Vancomycin Per PHA 02/26/21 Logged Pharmacy (Vanco Per 16:15 Pip/Tazo Per Pharmacy PHA 02/26/21 Logged (Zosyn Per Pharmac 16:15 Iv Normal Saline PHA 02/26/21 In Process 1000ml Bag (Iv Sodium 16:15 Chest Ap Only RAD 02/26/21 Resulted 16:18 Piperacillin/Tazobactam PHA 02/26/21 Complete (Zosyn) 16:30 Vancomycin PHA 02/26/21 In Process (Vancomycin) 16:30 [place] Order ADT 02/26/21 Transmitted 16:53 Code Status CODE 02/26/21 Transmitted 16:53 Vital Signs, Per Unit RANCHO 02/26/21 In Process Protocol 16:53 Regular DIET 02/26/21 Transmitted Dinner Ambulate With RANCHO 02/26/21 In Process Assistance 16:53 Cbc W Autodiff LAB 02/27/21 Verified 06:00 Basic Metabolic Panel LAB 02/27/21 Verified 06:00 Ondansetron Pf PHA 02/26/21 In Process (Zofran) 17:00 Consult Physician By CONS 02/26/21 Transmitted Name 16:53 Departure Departure Impression: Primary Impression: Gram positive sepsis Disposition: ADMITTED INPATIENT Admitting Physician: EYAL (Andrzej) Condition: STABLE Referrals: AMAIRANI NEWSOME MD (PCP) CHALO PAULINO DO Feb 26, 2021 16:09
[2021-02-26] MEDS ORDERED: PIP/TAZO PER PHARMACY MC PRN (16:15)
[2021-02-26] MEDS ORDERED: IV NORMAL SALINE 1000ML BAG 1,000 ML IV ONE (16:15)
[2021-02-26] MEDS ORDERED: VANCOMYCIN PER PHARMACY MC PRN (16:15)
[2021-02-26] MEDS ORDERED: PIPERACILLIN/TAZOBACTAM 3.375 GM in IV NORMAL SALINE 50ML 50 ML IV ONE (16:30)
[2021-02-26] MEDS ORDERED: VANCOMYCIN 2 GM in IV NORMAL SALINE 500ML BAG 500 ML IV ONE (16:30)
--- NOTE | 2021-02-26 16:37 | RAD ---
EXAM: Chest, single view. HISTORY: Pneumonia. COMPARISON: 02/25/2021 FINDINGS: A frontal view of the chest is obtained. There has been no change in diffuse left upper lob e and bilateral lower lobe predominant interstitial infiltrate. There is no pleural effusion or pneum othorax. The heart is stable in size. IMPRESSION: No significant change in suspected multifocal pneumonia. Follow-up to confirm resolution. Electronically signed by: Hoa Rosario MD (02/26/2021 4:34 PM) [id number]
[2021-02-26] MEDS ORDERED: ONDANSETRON PF 4 MG/2 ML VIAL. IVP PRN ×2 (17:00→17:45)
[2021-02-26 17:06] LABS: BASO % 0 % (0-3); EOS % 0 % (0-3); HEMATOCRIT 36.5 % (36.0-47.0); HEMOGLOBIN 12.5 g/dL (12.0-15.5); LYMPH # 0.7 x10^3/uL (1.0-4.8); LYMPH % 12 % (24-48); MEAN CORPUSCULAR HEMOGLOBIN 30 pg (25-35); MEAN CORPUSCULAR HGB CONC 34 g/dL (31-37); MEAN CORPUSCULAR VOLUME 88 fL (79-100); MONO # 0.1 x10^3/uL (0.0-1.1); MONO % 1 % (0-9); NEUT # 4.6 x10^3/uL (1.8-7.7); NEUT % 86 % (31-73); PLATELET COUNT 392 x10^3/uL (140-400); RED BLOOD COUNT 4.17 x10^6/uL (3.50-5.40); RED CELL DISTRIBUTION WIDTH 13.6 % (11.5-14.5); WHITE BLOOD COUNT 5.3 x10^3/uL (4.0-11.0)
[2021-02-26 17:19] LABS: CALCIUM 8.5 mg/dL (8.5-10.1); CREATININE 0.8 mg/dL (0.6-1.0); GFR 98.8; POTASSIUM 4.2 mmol/L (3.5-5.1)
[2021-02-26 17:21] LABS: BILIRUBIN,URINE NEGATIVE (NEG); CLARITY,URINE CLEAR; COLOR,URINE YELLOW; NITRITE,URINE NEGATIVE (NEG); PH,URINE 5.5 (<5.0-8.0); PROTEIN,URINE 100 mg/dL (NEG-TRACE); UROBILINOGEN,URINE 0.2 mg/dL (0.2 mg/dL)
[2021-02-26 17:24] LABS: U PREG PATIENT NEGATIVE (NEG)
[2021-02-26 17:31] LABS: BACTERIA,URINE MANY /HPF (0-FEW); WBC,URINE RARE /HPF (0-4)
[2021-02-26] MEDS ORDERED: LOPERAMIDE 2 MG CAPSULE PO PRN (17:45)
--- NOTE | 2021-02-26 17:46 | PDOC1 ---
History and Physical Date of Admission Date of Admission DATE: 02/26/21 TIME: 17:40 Identification/Chief Complaint Chief Complaint Gram positive blood culture positive, COVID 19 Source Source: Chart review, Patient History of Present Illness History of Present Illness Ms Velez is a 35 year old female with a history of allergic rhinitis, GERD, chronic constipation, cerebral palsy, mental retardation and seizure disorder who had been seen in the ED the past 2 days, sent from her senior living, due to some mild COVID 19 symptoms. Still c/o shortness of breath and a cough as well as some fever, chills and congestion. She had a positive blood culture from blood cultures that were drawn in the emergency department 02/26/21 positive for gram-positive cocci in clusters and was instructed to return. She has no chest pain and only asks if she can watch television, eat and if I can help her go to the restroom. Unable to obtain much more history. Tachycardic with heart rate 108 bpm. breathing 20/min O2 saturations 94% on room air. Labs with WBC 5.3, Hb 12.5, platelets 392, NA 139, K4.2, BUN 5, CR 0.8 glucose 154, calcium 8.5, lactic acid 1-urinalysis with moderate blood ketones negative leukocyte esterase and nitrites, urine test negative Chest radiograph with diffuse left upper lobe bilateral lower lobe interstitial infiltrates. Given her persistent symptoms and positive blood cultures admitted for treatment of pneumonia and bacteremia Past Medical History CENTRAL NERVOUS SYSTEM: Seizure GI: GERD Psych: Anxiety, Bipolar Past Surgical History Past Surgical History: No pertinent history Family History Family History: Parent ( mother and father) Social History Smoke: No ALCOHOL: none Drugs: None Current Problem List Problem List Problems Medical Problems: (1) Gram positive sepsis Status: Acute Current Medications Current Medications Current Medications Vancomycin HCl (Vanco Per Pharmacy) 1 each PRN DAILY PRN MC SEE COMMENTS; Start 02/26/21 at 16:15; Status UNV Piperacillin Sod/ Tazobactam Sod (Zosyn Per Pharmacy) 1 each PRN DAILY PRN MC SEE COMMENTS; Start 02/26/21 at 16:15 Sodium Chloride 1,000 ml @ 1,000 mls/hr 1X ONCE IV Last administered on 02/26/21at 16:15; Start 02/26/21 at 16:15; Stop 02/26/21 at 17:14; Status DC Piperacillin Sod/ Tazobactam Sod 3.375 gm/Sodium Chloride 50 ml @ 100 mls/hr 1X ONCE IV Last administered on 02/26/21at 16:30; Start 02/26/21 at 16:30; Stop 02/26/21 at 16:59; Status DC Vancomycin HCl 2 gm/Sodium Chloride 500 ml @ 250 mls/hr 1X ONCE IV ; Start 02/26/21 at 16:30; Stop 02/26/21 at 18:29 Ondansetron HCl (Zofran) 4 mg PRN Q8HRS PRN IVP NAUSEA/VOMITING; Start 02/26/21 at 17:00; Stop 02/27/21 at 16:59 Piperacillin Sod/ Tazobactam Sod 3.375 gm/Sodium Chloride 50 ml @ 100 mls/hr Q6HRS IV ; Start 02/27/21 at 00:00 Active Scripts Active Levofloxacin 750 Mg Tablet 1 Tab PO DAILY Proair Hfa Inhaler (Albuterol Sulfate) 8.5 Gm Hfa.aer.ad 2 Puff IH PRN Q4-6HRS PRN 21 Days Prednisone 50 Mg Tablet 1 Tab PO DAILY 5 Days Proair Hfa Inhaler (Albuterol Sulfate) 8.5 Gm Hfa.aer.ad 2 Puff IH PRN Q4-6HRS PRN 21 Days [place] 5-325 Tablet (Acetaminophen/Hydrocodone Bitart) 1 Each Tablet 1-2 Tab PO Q4-6HRS Keppra (Levetiracetam) 500 Mg Tablet 500 Mg PO BID Reported Ventolin Hfa Inhaler (Albuterol Sulfate) 18 Gm Hfa.aer.ad 2 Puff INH Q6HRS Ranitidine Hcl 150 Mg Tablet 1 Tab PO BID Miralax (Polyethylene Glycol 3350) 17 Gm Powd.pack 1 Packet PO DAILY Loxapine (Loxapine Succinate) 50 Mg Capsule 50 Mg PO BID Loratadine 10 Mg Tablet 1 Tab PO DAILY Escitalopram Oxalate 20 Mg Tablet 1 Tab PO DAILY Allergies Allergies: Coded Allergies: No Known Drug Allergies (Unverified , 02/26/21) ROS General: YES: Chills, Fatigue, Malaise; No: Night Sweats, Appetite, Other PSYCHOLOGICAL ROS: YES: Anxiety, Memory difficulties, Mood Swings, Obsessive thoughts; No: Behavioral Disorder, Concentration difficultie, Decreased libido, Depression, Disorientation, Hallucinations, Hostility, Irritablity, Physical abuse, Sexual abuse, Sleep disturbances, Suicidal ideation, Other Eyes: No Blurry vision, No Decreased vision, No Double vision, No Dry eyes, No Excessive tearing, No Eye Pain, No Itchy Eyes, No Loss of vision, No Photophobia, No Scotomata, No Uses contacts, No Uses glasses, No Other HEENT: No: Heacaches, Visual Changes, Hearing change, Nasal congestion, Nasal discharge, Oral lesions, Sinus pain, Sore Throat, Epistaxis, Sneezing, Snoring, Tinnitus, Vertigo, Vocal changes, Other ALLERGY AND IMMUNOLOGY: No: Hives, Insect Bite Sensitivity, Itchy/Watery Eyes, Nasal Congestion, Post Nasal Drip, Seasonal Allergies, Other Hematological and Lymphatic: No: Bleeding Problems, Blood Clots, Blood Transfusions, Brusing, Night Sweats, Pallor, Swollen Lymph Nodes, Other ENDOCRINE: No: Breast Changes, Galactorrhea, Hair Pattern Changes, Hot Flashes, Malaise/lethargy, Mood Swings, Palpitations, Polydipsia/polyuria, Skin Changes, Temperature Intolerance, Unexpected Weight Changes, Other Breast: No New/Changing Breast Lumps, No Nipple changes, No Nipple discharge, No Other Respiratory: YES: Cough, Shortness of breath, SOB with excertion; No: Hemoptysis, Orthopnea, Pleuritic Pain, Sputum Changes, Stridor, Tachypnea, Wheezing, Other Cardiovascular: No Chest Pain, No Palpitations, No Orthopnea, No Paroxysmal Noc. Dyspnea, No Edema, No Lt Headedness, No Other Gastrointestinal: Yes Diarrhea; No Nausea, No Vomiting, No Abdominal Pain, No Constipation, No Melena, No Hematochezia, No Other Genitourinary: No Dysuria, No Frequency, No Incontinence, No Hematuria, No R etention, No Discharge, No Urgency, No Pain, No Flank Pain, No Other, No , No , No , No , No , No , No Musculoskeletal: No Gait Disturbance, No Joint Pain, No Joint Stiffness, No Joint Swelling, No Muscle Pain, No Muscular Weakness, No Pain In:, No Swelling In:, No Other Neurological: No Behavorial Changes, No Bowel/Bladder ControlChng, No Confusion, No Dizziness, No Gait Disturbance, No Headaches, No Impaired Coord/balance, No Memory Loss, No Numbness/Tingling, No Seizures, No Speech Problems, No Tremors, No Visual Changes, No Weakness, No Other Skin: No Dry Skin, No Eczema, No Hair Changes, No Lumps, No Mole Changes, No Mottling, No Nail Changes, No Pruritus, No Rash, No Skin Lesion Changes, No Other, No Acne Physical Exam General: Alert, Cooperative, moderate distress HEENT: Atraumatic, PERRLA, EOMI, Mucous membr. moist/pink Lungs: Other (Bilateral crackles) Heart: S1S2, RRR, no thrills, no rubs, no gallops, no murmurs Abdomen: Normal bowel sounds, Soft, No tenderness, No hepatosplenomegaly, No masses Rectal Exam: not examined Extremities: No clubbing, No cyanosis, No edema, Normal pulses, No tenderness/swelling Skin: No rashes, No breakdown, No significant lesion Neuro: Normal gait, Normal speech, Strength at 5/5 X4 ext, Normal tone, S ensation intact, Cranial nerves 3-12 NL, Reflexes 2+ Psych/Mental Status: Other (Slow to respond) Vitals Vitals Vital Signs Date Time Temp Pulse Resp B/P (MAP) Pulse Ox O2 Delivery O2 Flow Rate FiO2 02/26/21 16:17 98.5 103 15 138/100 95 Room Air 98.5 Labs Labs Laboratory Tests Test 02/26/21 17:00 02/26/21 17:15 White Blood Count 5.3 x10^3/uL (4.0-11.0) Red Blood Count 4.17 x10^6/uL (3.50-5.40) Hemoglobin 12.5 g/dL (12.0-15.5) Hematocrit 36.5 % (36.0-47.0) Mean Corpuscular Volume 88 fL (79-100) Mean Corpuscular Hemoglobin 30 pg (25-35) Mean Corpuscular Hemoglobin Concent 34 g/dL (31-37) Red Cell Distribution Width 13.6 % (11.5-14.5) Platelet Count 392 x10^3/uL (140-400) Neutrophils (%) (Auto) 86 % (31-73) Lymphocytes (%) (Auto) 12 % (24-48) Monocytes (%) (Auto) 1 % (0-9) Eosinophils (%) (Auto) 0 % (0-3) Basophils (%) (Auto) 0 % (0-3) Neutrophils # (Auto) 4.6 x10^3/uL (1.8-7.7) Lymphocytes # (Auto) 0.7 x10^3/uL (1.0-4.8) Monocytes # (Auto) 0.1 x10^3/uL (0.0-1.1) Eosinophils # (Auto) 0.0 x10^3/uL (0.0-0.7) Basophils # (Auto) 0.0 x10^3/uL (0.0-0.2) Sodium Level 139 mmol/L (136-145) Potassium Level 4.2 mmol/L (3.5-5.1) Chloride Level 104 mmol/L (98-107) Carbon Dioxide Level 22 mmol/L (21-32) Anion Gap 13 (6-14) Blood Urea Nitrogen 5 mg/dL (7-20) Creatinine 0.8 mg/dL (0.6-1.0) Estimated GFR (Cockcroft-Gault) 98.8 Glucose Level 154 mg/dL (70-99) Lactic Acid Level 1.0 mmol/L (0.4-2.0) Calcium Level 8.5 mg/dL (8.5-10.1) Urine Collection Type Unknown Urine Color Yellow Urine Clarity Clear Urine pH 5.5 (<5.0-8.0) Urine Specific [place] 1.025 (1.000-1.030) Urine Protein 100 mg/dL (NEG-TRACE) Urine Glucose (UA) Negative mg/dL (NEG) Urine Ketones (Stick) >=80 mg/dL (NEG) Urine Blood Moderate (NEG) Urine Nitrite Negative (NEG) Urine Bilirubin Negative (NEG) Urine Urobilinogen Dipstick 0.2 mg/dL (0.2 mg/dL) Urine Leukocyte Esterase Negative (NEG) Urine RBC 1-2 /HPF (0-2) Urine WBC Rare /HPF (0-4) Urine Squamous Epithelial Cells Many /LPF Urine Bacteria Many /HPF (0-FEW) Urine Mucus Mod /LPF Urine Test Negative (NEG) Laboratory Tests Test 02/26/21 17:00 02/26/21 17:15 White Blood Count 5.3 x10^3/uL (4.0-11.0) Red Blood Count 4.17 x10^6/uL (3.50-5.40) Hemoglobin 12.5 g/dL (12.0-15.5) Hematocrit 36.5 % (36.0-47.0) Mean Corpuscular Volume 88 fL (79-100) Mean Corpuscular Hemoglobin 30 pg (25-35) Mean Corpuscular Hemoglobin Concent 34 g/dL (31-37) Red Cell Distribution Width 13.6 % (11.5-14.5) Platelet Count 392 x10^3/uL (140-400) Neutrophils (%) (Auto) 86 % (31-73) Lymphocytes (%) (Auto) 12 % (24-48) Monocytes (%) (Auto) 1 % (0-9) Eosinophils (%) (Auto) 0 % (0-3) Basophils (%) (Auto) 0 % (0-3) Neutrophils # (Auto) 4.6 x10^3/uL (1.8-7.7) Lymphocytes # (Auto) 0.7 x10^3/uL (1.0-4.8) Monocytes # (Auto) 0.1 x10^3/uL (0.0-1.1) Eosinophils # (Auto) 0.0 x10^3/uL (0.0-0.7) Basophils # (Auto) 0.0 x10^3/uL (0.0-0.2) Sodium Level 139 mmol/L (136-145) Potassium Level 4.2 mmol/L (3.5-5.1) Chloride Level 104 mmol/L (98-107) Carbon Dioxide Level 22 mmol/L (21-32) Anion Gap 13 (6-14) Blood Urea Nitrogen 5 mg/dL (7-20) Creatinine 0.8 mg/dL (0.6-1.0) Estimated GFR (Cockcroft-Gault) 98.8 Glucose Level 154 mg/dL (70-99) Lactic Acid Level 1.0 mmol/L (0.4-2.0) Calcium Level 8.5 mg/dL (8.5-10.1) Urine Collection Type Unknown Urine Color Yellow Urine Clarity Clear Urine pH 5.5 (<5.0-8.0) Urine Specific [place] 1.025 (1.000-1.030) Urine Protein 100 mg/dL (NEG-TRACE) Urine Glucose (UA) Negative mg/dL (NEG) Urine Ketones (Stick) >=80 mg/dL (NEG) Urine Blood Moderate (NEG) Urine Nitrite Negative (NEG) Urine Bilirubin Negative (NEG) Urine Urobilinogen Dipstick 0.2 mg/dL (0.2 mg/dL) Urine Leukocyte Esterase Negative (NEG) Urine RBC 1-2 /HPF (0-2) Urine WBC Rare /HPF (0-4) Urine Squamous Epithelial Cells Many /LPF Urine Bacteria Many /HPF (0-FEW) Urine Mucus Mod /LPF Urine Test Negative (NEG) Images Images Chest radiograph: A frontal view of the chest is obtained. There has been no change in diffuse left upper lobe and bilateral lower lobe predominant interstitial infiltrate. There is no pleural effusion or pneumothorax. The heart is stable in size. IMPRESSION: No significant change in suspected multifocal pneumonia. Follow-up to confirm resolution. VTE Prophylaxis Ordered VTE Prophylaxis Devices: Contraindicated VTE Pharmacological Prophylaxi: Yes Assessment/Plan Assessment/Plan A/P: Multifocal pneumonia - with location and seizure history some concern for aspiration pneumonia likely gram negative complicated by COVID 19 pneumonia. No indication for steroids or remdesivir, but clinically needs antibiotic treatment presently Gram positive blood culture positive - Empiric vancomycin and zosyn, will f/u results. Given her symptoms it is possibly a contaminant, though her pneumonia symptoms merit treatment regardless Covid 19 - mild symptoms, not hypoxic, will give supportive care, monitor O2 saturations Allergic rhinitis cont home meds GERD - cont home meds Chronic constipation Cerebral palsy, mental retardation - cont antidepressants, loxapine Seizure disorder - cont keppra FEN - General diet PPX - lovenox FULL CODE Dispo - inpatient for above Justifications for Admission Other Justification DANN MCPHERSON MD Feb 26, 2021 17:46
[2021-02-26 18:15] LABS: % BANDS 15 % (0-9); % LYMPHS 8 % (24-48); % SEGS 77 % (35-66)
[2021-02-26 18:16] LABS: PLT ESTIMATE ADEQUATE (ADEQUATE)
[2021-02-26 18:30] VITALS: BP 135/106
--- NOTE | 2021-02-26 19:44 | NUR ---
Pharmacy Vancomycin Dosing Note S:Consulted to monitor and dose vancomycin started 02/26/21. O:ASHLEY CANALES is a 35 year old F with Sepsis . Height: 5 feet, 4 inches Weight: 110.0 kg [place] Body Weight: 54.70 Adjusted Body Weight: 76.82 Dosing Weight: Other Antibiotics: LABS: Last BUN: 5 Last Creatinine: 0.8 Creatinine Clearance: 119 mL/min Last WBC: 5.3 Last Procalcitonin: Tmax (past 24 hours): 98.5 Microbiology: I/O: Drug Levels: Last level: on at Last dose given 02/26/21 at 1630 Vancomycin Dosing: Loading Dose: 2000 mg x1 Dosing Weight: Target Trough: 15-20 A: Based on weight and CrCl: P: 1. Vancomycin 2000mg, followed by Vancomycin 1500 mg IV q8h. 2. Follow up Trough level on 02/27/21 at 1630. 3. Pharmacy will continue to monitor, follow and adjust therapy as needed. Miller Mac [facility], 02/26/21 1944
[2021-02-26] MEDS: levETIRAcetam 500 MG TABLET PO SCH (20:46)
[2021-02-26] MEDS: LOXAPINE SUCCINATE 25 MG CAPSULE PO SCH (20:46)
[2021-02-26] MEDS: FAMOTIDINE 20 MG TABLET. PO SCH (20:46)
[2021-02-26] MEDS: ENOXAPARIN 40 MG/0.4 ML SYRINGE. SQ SCH (20:46)
[2021-02-26] MEDS: ACETAMINOPHEN 325 MG TABLET. PO PRN (20:48)
[2021-02-26] MEDS ORDERED: POLYETHYLENE GLYCOL 3350 17 GM PACKET. PO PRN (21:30)
[2021-02-26 23:21] VITALS: BP 137/87
[2021-02-26] MEDS: PIPERACILLIN/TAZOBACTAM 3.375 GM in IV NORMAL SALINE 50ML 50 ML IV SCH (23:59)
[2021-02-27] MEDS ORDERED: VANCOMYCIN 1.5 GM in IV NORMAL SALINE 500ML BAG 500 ML IV SCH (01:00)
[2021-02-27 03:00] VITALS: BP 132/98
[2021-02-27] MEDS: PIPERACILLIN/TAZOBACTAM 3.375 GM in IV NORMAL SALINE 50ML 50 ML IV SCH (06:01)
[2021-02-27 07:00] VITALS: BP 175/84
[2021-02-27] MEDS: LOXAPINE SUCCINATE 25 MG CAPSULE PO SCH ×2 (09:21→21:23)
[2021-02-27] MEDS: THIAMINE 100 MG TABLET. PO SCH (09:21)
[2021-02-27] MEDS: ZINC SULFATE 220 MG CAPSULE. PO SCH (09:22)
[2021-02-27] MEDS: levETIRAcetam 500 MG TABLET PO SCH ×2 (09:22→21:21)
[2021-02-27] MEDS: CETIRIZINE HCL 10 MG TABLET. PO SCH (09:22)
[2021-02-27] MEDS: FAMOTIDINE 20 MG TABLET. PO SCH ×2 (09:22→21:21)
[2021-02-27] MEDS: CITALOPRAM 20 MG TABLET. PO SCH (09:22)
[2021-02-27] MEDS: ASCORBIC ACID 500 MG TABLET PO SCH (09:22)
[2021-02-27] MEDS: POLYETHYLENE GLYCOL 3350 17 GM PACKET. PO SCH (09:23)
[2021-02-27] MEDS: ENOXAPARIN 40 MG/0.4 ML SYRINGE. SQ SCH ×2 (09:23→21:21)
[2021-02-27 11:00] VITALS: BP 155/98
[2021-02-27] MEDS: ACETAMINOPHEN 325 MG TABLET. PO PRN (11:30)
--- NOTE | 2021-02-27 13:47 | CONS ---
DATE OF CONSULTATION: 02/27/2021 REQUESTING PHYSICIAN: Juan Calros Donnelly MD. REASON FOR CONSULTATION: Blood culture positive. HISTORY OF PRESENT ILLNESS: This is a 35-year-old female who has mental retardation, who came in to the Emergency Room with fever. The patient lives in a fdc and the partner has been positive with COVID. The patient has turned with positive with COVID. The patient has been on room air, not requiring any oxygen support and no longer fever, but on the , when she was seen in the ER and discharged, blood culture done, which turned positive 1 out of 2, hence she was asked to come back in. The patient is sitting and eating. The patient has no distress, but she answers everything yes. When I asked fever, she says yes. When I asked nausea and vomiting, she says yes, and according to the nurse, she does answer yes to everything. No nausea, vomiting, diarrhea or fever noted by RN. PAST MEDICAL HISTORY: Positive for mental retardation, gastroesophageal reflux disease, chronic constipation, cerebral palsy, seizure disorder. SOCIAL HISTORY: Negative for smoking, alcohol or illicit drug use. The patient lives in a fdc. ALLERGIES: No known drug allergies. CURRENT MEDICATIONS: Reviewed. The patient is on vancomycin and Zosyn. REVIEW OF SYSTEMS: As in HPI. All other systems reviewed through the patient's RN. PHYSICAL EXAMINATION: VITAL SIGNS: Temperature 98.1, pulse 89, respirations 17, blood pressure 132/96. HEENT: Both pupils are round and reacting. No conjunctival lesion, no lesion in the mouth. NECK: Supple, no JVP, no lymphadenopathy. LUNGS: Clear. HEART: S1, S2 regular. ABDOMEN: Benign. EXTREMITIES: No edema or cyanosis. SKIN: Unremarkable. NEUROLOGIC: The patient is alert, awake, but mental retardation with unable to do meaningful communication. LABORATORY DATA: White count is 5.3, platelets are normal. BUN and creatinine is normal. Urinalysis unremarkable. Her blood culture 1 out of 2 gram-positive cocci and COVID is positive. Chest x-ray showed mild bilateral patchy infiltrate. IMPRESSION: 1. COVID-19 positive. 2. Blood culture 1 out of 2 gram-positive olu, most likely to be contaminant. 3. Gastroesophageal reflux disease. 4. Cerebral palsy. 5. Mental retardation. RECOMMENDATIONS: I do not see the need for antibiotics. The patient can be discharged, but follow up on the culture to make sure it continues to be 1 out of 2 coag-negative staph. Thank you very much Dr. Donnelly for giving me opportunity to participate in this patient's care. SHAWN/ALYSSIA/JEFFRY DR: SHAWN/kaushal TID: [id number] DILIPD
--- NOTE | 2021-02-27 14:17 | NUR ---
SS following for discharge planning. SS reviewed pt chart and discussed with pt RN. Pt is from home and is currently on room air. SS will continue to follow for discharge planning.
--- NOTE | 2021-02-27 14:20 | PDOC ---
[facility] PROGRESS NOTE Date of Service DOS: DATE: 02/27/21 TIME: 14:01 Chief Complaint Chief Complaint Multifocal pneumonia COVID-19 Positive Allergic rhinitis GERD Chronic constipation Cerebral palsy, Intellectual disability Seizure disorder History of Present Illness History of Present Illness HPI: Ms Velez is a 35 year old female with a history of allergic rhinitis, GERD, chronic constipation, cerebral palsy, mental retardation and seizure disorder who had been seen in the ED the past 2 days, sent from her half-way, due to some mild COVID 19 symptoms. Still c/o shortness of breath and a cough as well as some fever, chills and congestion. She had a positive blood culture from blood cultures that were drawn in the emergency department 02/26/21 positive for gram-positive cocci in clusters and was instructed to return. She has no chest pain and only asks if she can watch television, eat and if I can help her go to the restroom. Unable to obtain much more history. Tachycardic with heart rate 108 bpm. breathing 20/min O2 saturations 94% on room air. Labs with WBC 5.3, Hb 12.5, platelets 392, NA 139, K4.2, BUN 5, CR 0.8 glucose 154, calcium 8.5, lactic acid 1-urinalysis with moderate blood ketones negative leukocyte esterase and nitrites, urine test negative Chest radiograph with diffuse left upper lobe bilateral lower lobe interstitial infiltrates. Given her persistent symptoms and positive blood cultures admitted for treatment of pneumonia and bacteremia 02/27: Patient seen and examined. Discussed with RN. Chart reviewed. Patient alert but not oriented. Patient is not on additional O2. Seizure history indicates increased risk of aspiration pneumonia. Consult with infectious disease indicated admit cultures were likely contaminated. IV antibiotics were stopped. Patient did have fever (102.5 F) during examination. Infectious Disease was notified of fever. Patient refused blood draw. Per nurse report, patient was coughing up liquids following PO meds, plan to consult speech therapy. Vitals/I&O Vitals/I&O: Vital Signs Date Time Temp Pulse Resp B/P (MAP) Pulse Ox O2 Delivery O2 Flow Rate FiO2 02/27/21 07:00 99.4 114 20 175/84 (114) 95 Room Air 99.4 I & O 02/26/21 02/26/21 02/27/21 14:59 22:59 06:59 Intake Total 120 ml 240 ml Balance 120 ml 240 ml Physical Exam General: Alert, Cooperative, moderate distress Abdomen: Normal bowel sounds, Soft, No tenderness, No hepatosplenomegaly, No masses Extremities: No clubbing, No cyanosis, No edema, Normal pulses, No tenderness/swelling Skin: No rashes, No breakdown, No significant lesion Labs Labs: Laboratory Tests Test 02/26/21 17:00 02/26/21 17:15 White Blood Count 5.3 x10^3/uL (4.0-11.0) Red Blood Count 4.17 x10^6/uL (3.50-5.40) Hemoglobin 12.5 g/dL (12.0-15.5) Hematocrit 36.5 % (36.0-47.0) Mean Corpuscular Volume 88 fL (79-100) Mean Corpuscular Hemoglobin 30 pg (25-35) Mean Corpuscular Hemoglobin Concent 34 g/dL (31-37) Red Cell Distribution Width 13.6 % (11.5-14.5) Platelet Count 392 x10^3/uL (140-400) Neutrophils (%) (Auto) 86 % (31-73) Lymphocytes (%) (Auto) 12 % (24-48) Monocytes (%) (Auto) 1 % (0-9) Eosinophils (%) (Auto) 0 % (0-3) Basophils (%) (Auto) 0 % (0-3) Neutrophils # (Auto) 4.6 x10^3/uL (1.8-7.7) Lymphocytes # (Auto) 0.7 x10^3/uL (1.0-4.8) Monocytes # (Auto) 0.1 x10^3/uL (0.0-1.1) Eosinophils # (Auto) 0.0 x10^3/uL (0.0-0.7) Basophils # (Auto) 0.0 x10^3/uL (0.0-0.2) Segmented Neutrophils % 77 % (35-66) Band Neutrophils % 15 % (0-9) Lymphocytes % 8 % (24-48) Platelet Estimate Adequate (ADEQUATE) Sodium Level 139 mmol/L (136-145) Potassium Level 4.2 mmol/L (3.5-5.1) Chloride Level 104 mmol/L (98-107) Carbon Dioxide Level 22 mmol/L (21-32) Anion Gap 13 (6-14) Blood Urea Nitrogen 5 mg/dL (7-20) Creatinine 0.8 mg/dL (0.6-1.0) Estimated GFR (Cockcroft-Gault) 98.8 Glucose Level 154 mg/dL (70-99) Lactic Acid Level 1.0 mmol/L (0.4-2.0) Calcium Level 8.5 mg/dL (8.5-10.1) Urine Collection Type Unknown Urine Color Yellow Urine Clarity Clear Urine pH 5.5 (<5.0-8.0) Urine Specific [place] 1.025 (1.000-1.030) Urine Protein 100 mg/dL (NEG-TRACE) Urine Glucose (UA) Negative mg/dL (NEG) Urine Ketones (Stick) >=80 mg/dL (NEG) Urine Blood Moderate (NEG) Urine Nitrite Negative (NEG) Urine Bilirubin Negative (NEG) Urine Urobilinogen Dipstick 0.2 mg/dL (0.2 mg/dL) Urine Leukocyte Esterase Negative (NEG) Urine RBC 1-2 /HPF (0-2) Urine WBC Rare /HPF (0-4) Urine Squamous Epithelial Cells Many /LPF Urine Bacteria Many /HPF (0-FEW) Urine Mucus Mod /LPF Urine Test Negative (NEG) Review of Systems Review of Systems: Patient endorses abdominal pain. Assessment and Plan Assessmemt and Plan Problems Medical Problems: (1) Gram positive sepsis Status: Acute Assessment: Multifocal pneumonia COVID-19 Positive Allergic rhinitis GERD Chronic constipation Cerebral palsy, Intellectual disability Seizure disorder Plan: 1. Continue COVID-19 Protocol (vitamins and minerals, robitussin) - Zosyn stopped per subspecialty input 2. Add aspirin to COVID Protocol 3. Appreciate Infectious Disease consultation input - Stopped IV antibiotics (vancomysin, zosyn) - Follow up on culture to make sure it continues to be 1 out of 2 coag- negative staph. 4. Continue PRN Tylenol for fevers 5. Order Speech therapy consult 6. Continue PPX - lovenox 7. Continue home meds 8. FULL CODE 9. Discharge disposiiton pending - patient can be discharged, pending confirmation of contaminated cultures Comment Review of Relevant I have reviewed the following items theresa (where applicable) has been applied. Medications: Current Medications Medications (Trade) Dose Ordered Sig/Matty Route PRN Reason Start Time Stop Time Status Last Admin Dose Admin Vancomycin HCl (Vanco Per Pharmacy) 1 each PRN DAILY PRN MC SEE COMMENTS 02/26/21 16:15 02/27/21 08:44 DC 02/26/21 19:38 Sodium Chloride 1,000 ml @ 1,000 mls/hr 1X ONCE IV 02/26/21 16:15 02/26/21 17:14 DC 02/26/21 16:15 Piperacillin Sod/ Tazobactam Sod 3.375 gm/Sodium Chloride 50 ml @ 100 mls/hr 1X ONCE IV 02/26/21 16:30 02/26/21 16:59 DC 02/26/21 16:30 Vancomycin HCl 2 gm/Sodium Chloride 500 ml @ 250 mls/hr 1X ONCE IV 02/26/21 16:30 02/26/21 18:29 DC 02/26/21 16:30 Piperacillin Sod/ Tazobactam Sod 3.375 gm/Sodium Chloride 50 ml @ 100 mls/hr Q6HRS IV 02/27/21 00:00 02/27/21 08:44 DC 02/27/21 06:01 Levetiracetam (Keppra) 500 mg BID PO 02/26/21 21:00 02/27/21 09:22 Polyethylene Glycol (miraLAX PACKET) 17 gm DAILY PO 02/27/21 09:00 02/27/21 09:23 Citalopram Hydrobromide (CeleXA) 40 mg DAILY PO 02/27/21 09:00 02/27/21 09:22 Cetirizine HCl (ZyrTEC) 10 mg DAILY PO 02/27/21 09:00 02/27/21 09:22 Loxapine Succinate (Loxitane) 50 mg BID PO 02/26/21 21:00 02/27/21 09:21 Famotidine (Pepcid) 20 mg BID PO 02/26/21 21:00 02/27/21 09:22 Olanzapine (ZyPREXA ZYDIS) 5 mg PRN BID PRN PO ANXIETY / AGITATION 02/26/21 17:45 02/26/21 20:46 Acetaminophen (Tylenol) 650 mg PRN Q6HRS PRN PO MILD PAIN / TEMP > 100.3'F 02/26/21 17:45 9/2/21 11:30 Enoxaparin Sodium (Lovenox 40mg Syringe) 40 mg Q12H SQ 02/26/21 21:00 02/27/21 09:23 Zinc Sulfate (Orazinc) 220 mg DAILY PO 02/27/21 09:00 02/27/21 09:22 Thiamine Mononitrate (Vitamin B-1) 100 mg DAILY PO 02/27/21 09:00 02/27/21 09:21 Ascorbic Acid (Vitamin C) 500 mg DAILY PO 02/27/21 09:00 02/27/21 09:22 Vancomycin HCl 1.5 gm/Sodium Chloride 500 ml @ 250 mls/hr Q8H IV 02/27/21 01:00 02/27/21 08:44 DC 02/27/21 01:48 Justifications for Admission Other Justification LUDA GONG III DO Feb 27, 2021 14:20
[2021-02-27 15:00] VITALS: BP 124/60
[2021-02-27] MEDS: ASPIRIN 325 MG TABLET PO SCH (18:18)
[2021-02-27 19:00] VITALS: BP 138/72
[2021-02-27] MEDS: PSYLLIUM HUSK (SUGAR FREE) 1 PKT PACKET PO SCH (21:21)
[2021-02-27] MEDS: LACTOBACILLUS RHAMNOSUS GG 1 CAPSULE. PO SCH (21:21)
[2021-02-27] MEDS: guaiFENesin DM 200MG/20MG 10 ML SYRUP PO PRN (21:21)
[2021-02-27 23:00] VITALS: BP 120/77
[2021-02-28 03:00] VITALS: BP 132/92
[2021-02-28 07:00] VITALS: BP 133/76
--- NOTE | 2021-02-28 10:15 | PDOC ---
[facility] [facility] PROGRESS NOTE Date of Service DOS: DATE: 02/28/21 TIME: 10:01 Chief Complaint Chief Complaint Multifocal pneumonia COVID-19 Positive Allergic rhinitis GERD Chronic constipation Cerebral palsy, Intellectual disability Seizure disorder History of Present Illness History of Present Illness HPI: Ms Velez is a 35 year old female with a history of allergic rhinitis, GERD, chronic constipation, cerebral palsy, mental retardation and seizure disorder who had been seen in the ED the past 2 days, sent from her long-term, due to some mild COVID 19 symptoms. Still c/o shortness of breath and a cough as well as some fever, chills and congestion. She had a positive blood culture from blood cultures that were drawn in the emergency department 02/26/21 positive for gram-positive cocci in clusters and was instructed to return. She has no chest pain and only asks if she can watch television, eat and if I can help her go to the restroom. Unable to obtain much more history. Tachycardic with heart rate 108 bpm. breathing 20/min O2 saturations 94% on room air. Labs with WBC 5.3, Hb 12.5, platelets 392, NA 139, K4.2, BUN 5, CR 0.8 glucose 154, calcium 8.5, lactic acid 1-urinalysis with moderate blood ketones negative leukocyte esterase and nitrites, urine test negative Chest radiograph with diffuse left upper lobe bilateral lower lobe interstitial infiltrates. Given her persistent symptoms and positive blood cultures admitted for treatment of pneumonia and bacteremia 02/27: Patient seen and examined. Discussed with RN. Chart reviewed. Patient alert but not oriented. Patient is not on additional O2. Seizure history indicates increased risk of aspiration pneumonia. Consult with infectious disease indicated admit cultures were likely contaminated. IV antibiotics were stopped. Patient did have fever (102.5 F) during examination. Infectious Disease was notified of fever. Patient refused blood draw. Per nurse report, patient was coughing up liquids following PO meds, plan to consult speech therapy. 02/28: Patient seen and examined. Discussed with RN. Chart reviewed. Patient was not in acute distress. Her respiration rate has been 20-21 for over 24 hours, but she is not on additional O2 at this time. Consider O2 per nasal cannula if pulse ox decreases. Repeat cultures came back negative. Patient is not on antibiotics. She has had a low grade fever since yesterday. Infectious disease has been consulted. Patient endorsed abdominal pain, but no tenderness to palpation. Speech therapy evaluation indicated patient should be on mechanical soft diet with thin liquids. Vitals/I&O Vitals/I&O: Vital Signs Date Time Temp Pulse Resp B/P (MAP) Pulse Ox O2 Delivery O2 Flow Rate FiO2 02/28/21 07:00 99.8 119 20 133/76 (95) 95 Nasal Cannula 1.0 99.8 I & O 02/27/21 02/27/21 02/28/21 15:00 23:00 07:00 Intake Total 0 ml 0 ml Balance 0 ml 0 ml Physical Exam General: Alert, Cooperative, moderate distress Abdomen: Normal bowel sounds, Soft, No tenderness, No hepatosplenomegaly, No masses Extremities: No clubbing, No cyanosis, No edema, Normal pulses, No tenderness/swelling Skin: No rashes, No breakdown, No significant lesion Review of Systems Review of Systems: Patient denies nausea and vomiting. Assessment and Plan Assessmemt and Plan Problems Medical Problems: (1) Gram positive sepsis Status: Acute Assessment: Multifocal pneumonia COVID-19 Positive Allergic rhinitis GERD Chronic constipation Cerebral palsy, Intellectual disability Seizure disorder Plan: 1. Continue COVID-19 Protocol (vitamins and minerals, robitussin, aspirin) - Zosyn stopped per subspecialty input 2. Appreciate Infectious Disease consultation input - Stopped IV antibiotics (vancomysin, zosyn) - Follow up culture was negative 3. Continue PRN Tylenol for fevers 4. Encourage PO intake - mechanical soft diet with thin liquids 5. Continue PPX - lovenox 6. Continue home meds 7. FULL CODE 8. Discharge disposiiton pending - plan to keep patient over the weekend Comment Review of Relevant I have reviewed the following items theresa (where applicable) has been applied. Medications: Current Medications Medications (Trade) Dose Ordered Sig/Matty Route PRN Reason Start Time Stop Time Status Last Admin Dose Admin Psyllium Hydrophilic Mucilloid (Metamucil Fiber Packet) 1 pkt QHS PO 02/27/21 21:00 02/27/21 21:21 Aspirin (Alexandra Aspirin) 325 mg [id number] PO 02/27/21 15:00 02/27/21 18:18 Lactobacillus Rhamnosus (Culturelle) 1 cap BID PO 02/27/21 21:00 02/27/21 21:21 Justifications for Admission Other Justification CASTLE,NIAL K III DO Feb 28, 2021 10:15
[2021-02-28] MEDS: POLYETHYLENE GLYCOL 3350 17 GM PACKET. PO SCH (10:26)
[2021-02-28] MEDS: CITALOPRAM 20 MG TABLET. PO SCH (10:27)
[2021-02-28] MEDS: ACETAMINOPHEN 325 MG TABLET. PO PRN (10:27)
[2021-02-28] MEDS: LACTOBACILLUS RHAMNOSUS GG 1 CAPSULE. PO SCH ×2 (10:27→20:50)
[2021-02-28] MEDS: LOXAPINE SUCCINATE 25 MG CAPSULE PO SCH ×2 (10:27→20:50)
[2021-02-28] MEDS: ASCORBIC ACID 500 MG TABLET PO SCH (10:28)
[2021-02-28] MEDS: levETIRAcetam 500 MG TABLET PO SCH ×2 (10:28→20:50)
[2021-02-28] MEDS: FAMOTIDINE 20 MG TABLET. PO SCH ×2 (10:28→20:50)
[2021-02-28] MEDS: THIAMINE 100 MG TABLET. PO SCH (10:28)
[2021-02-28] MEDS: CETIRIZINE HCL 10 MG TABLET. PO SCH (10:28)
[2021-02-28] MEDS: ASPIRIN 325 MG TABLET PO SCH (10:28)
[2021-02-28] MEDS: ZINC SULFATE 220 MG CAPSULE. PO SCH (10:28)
[2021-02-28] MEDS: ENOXAPARIN 40 MG/0.4 ML SYRINGE. SQ SCH ×2 (10:29→20:50)
--- NOTE | 2021-02-28 10:29 | PDOC ---
Infectious Disease Note Subjective Subjective pt is feeling fine ROS ROS no n/v/d/sob Vital Sign Vital Signs Vital Signs Date Time Temp Pulse Resp B/P (MAP) Pulse Ox O2 Delivery O2 Flow Rate FiO2 02/28/21 07:00 99.8 119 20 133/76 (95) 95 Nasal Cannula 1.0 99.8 Physical Exam PHYSICAL EXAM VITAL SIGNS: stable HEENT: Both pupils are round and reacting. No conjunctival lesion, no lesion in the mouth. NECK: Supple, no JVP, no lymphadenopathy. LUNGS: Clear. HEART: S1, S2 regular. ABDOMEN: Benign. EXTREMITIES: No edema or cyanosis. SKIN: Unremarkable. NEUROLOGIC: The patient is alert, awake, but mental retardation with unable to do meaningful communication. Labs Micro Microbiology 02/26/21 Urine Culture - Final, Complete 02/26/21 Blood Culture - Preliminary, Resulted NO GROWTH AFTER 1 DAY Objective Assessment IMPRESSION: 1. COVID-19 positive. 2. Blood culture 1 out of 2 gram-positive cocci, most likely to be contaminant. 3. Gastroesophageal reflux disease. 4. Cerebral palsy. 5. Mental retardation. Plan Plan of Care cont supportive care IBETH ODEN MD Feb 28, 2021 10:28
[2021-02-28 11:00] VITALS: BP 147/79
[2021-02-28 12:29] LABS: C-REACTIVE PROTEIN 150.8 mg/L (0-3.3)
[2021-02-28 15:00] VITALS: BP 135/86
--- NOTE | 2021-02-28 16:14 | NUR ---
SS following up with discharge planning. SS reviewed pt chart and discussed with pt RN. Pt is from [facility]. Pt is currently requiring oxygen at two liters nasal canula. COVID19 positive. SS will continue to follow for discharge planning.
[2021-02-28 19:00] VITALS: BP 142/83
[2021-02-28] MEDS: PSYLLIUM HUSK (SUGAR FREE) 1 PKT PACKET PO SCH (20:50)
[2021-02-28 23:00] VITALS: BP 139/90
[2021-03-01 01:12] LABS: HEMOGLOBIN A1C 5.9 % (4.8-5.6)
[2021-03-01 03:00] VITALS: BP 138/92
[2021-03-01 07:00] VITALS: BP 141/99
[2021-03-01] MEDS: LACTOBACILLUS RHAMNOSUS GG 1 CAPSULE. PO SCH ×2 (09:55→22:47)
[2021-03-01] MEDS: ZINC SULFATE 220 MG CAPSULE. PO SCH (09:55)
[2021-03-01] MEDS: ENOXAPARIN 40 MG/0.4 ML SYRINGE. SQ SCH ×2 (09:55→22:47)
[2021-03-01] MEDS: LOXAPINE SUCCINATE 25 MG CAPSULE PO SCH ×2 (09:55→22:46)
[2021-03-01] MEDS: ASCORBIC ACID 500 MG TABLET PO SCH (09:55)
[2021-03-01] MEDS: CITALOPRAM 20 MG TABLET. PO SCH (09:55)
[2021-03-01] MEDS: FAMOTIDINE 20 MG TABLET. PO SCH ×2 (09:55→22:47)
[2021-03-01] MEDS: CETIRIZINE HCL 10 MG TABLET. PO SCH (09:55)
[2021-03-01] MEDS: ASPIRIN 325 MG TABLET PO SCH (09:55)
[2021-03-01] MEDS: levETIRAcetam 500 MG TABLET PO SCH ×2 (09:55→22:47)
[2021-03-01] MEDS: POLYETHYLENE GLYCOL 3350 17 GM PACKET. PO SCH (09:56)
[2021-03-01] MEDS: THIAMINE 100 MG TABLET. PO SCH (09:57)
[2021-03-01 11:00] VITALS: BP 136/90
--- NOTE | 2021-03-01 12:59 | PDOC ---
Infectious Disease Note Subjective Subjective pt is feeling fine no fever ROS ROS no n/v/d/ Vital Sign Vital Signs Vital Signs Date Time Temp Pulse Resp B/P (MAP) Pulse Ox O2 Delivery O2 Flow Rate FiO2 03/01/21 11:00 98.3 109 18 136/90 (105) 95 Nasal Cannula 2.0 98.3 Physical Exam PHYSICAL EXAM VITAL SIGNS: stable HEENT: Both pupils are round and reacting. No conjunctival lesion, no lesion in the mouth. NECK: Supple, no JVP, no lymphadenopathy. LUNGS: Clear. HEART: S1, S2 regular. ABDOMEN: Benign. EXTREMITIES: No edema or cyanosis. SKIN: Unremarkable. NEUROLOGIC: The patient is alert, awake, but mental retardation with unable to do meaningful communication. Labs Micro Microbiology 02/26/21 Urine Culture - Final, Complete 02/26/21 Blood Culture - Preliminary, Resulted NO GROWTH AFTER 1 DAY Objective Assessment 1. COVID-19 positive. 2. Blood culture 1 out of 2 gram-positive cocci, most likely to be contaminant. 3. Gastroesophageal reflux disease. 4. Cerebral palsy. 5. Mental retardation. Plan Plan of Care cont supportive care d/c IBETH Leonardo MD Mar 01, 2021 12:58
--- NOTE | 2021-03-01 14:01 | PDOC ---
[employer] [facility] PROGRESS NOTE Date of Service DOS: DATE: 03/01/21 TIME: 14:00 Chief Complaint Chief Complaint Multifocal pneumonia COVID-19 Positive Allergic rhinitis GERD Chronic constipation Cerebral palsy, Intellectual disability Seizure disorder History of Present Illness History of Present Illness HPI: Ms Velez is a 35 year old female with a history of allergic rhinitis, GERD, chronic constipation, cerebral palsy, mental retardation and seizure disorder who had been seen in the ED the past 2 days, sent from her [facility], due to some mild COVID 19 symptoms. Still c/o shortness of breath and a cough as well as some fever, chills and congestion. She had a positive blood culture from blood cultures that were drawn in the emergency department 02/26/21 positive for gram-positive cocci in clusters and was instructed to return. She has no chest pain and only asks if she can watch television, eat and if I can help her go to the restroom. Unable to obtain much more history. Tachycardic with heart rate 108 bpm. breathing 20/min O2 saturations 94% on room air. Labs with WBC 5.3, Hb 12.5, platelets 392, NA 139, K4.2, BUN 5, CR 0.8 glucose 154, calcium 8.5, lactic acid 1-urinalysis with moderate blood ketones negative leukocyte esterase and nitrites, urine test negative Chest radiograph with diffuse left upper lobe bilateral lower lobe interstitial infiltrates. Given her persistent symptoms and positive blood cultures admitted for treatment of pneumonia and bacteremia 02/27 03/01: Patient seen and examined. Discussed with RN. Chart reviewed. Patient was not in acute distress. ia on O2 per nasal cannula blood cx likely contaminant Patient is not on antibiotics. + low grade fever since yesterday. Vitals/I&O Vitals/I&O: Vital Signs Date Time Temp Pulse Resp B/P (MAP) Pulse Ox O2 Delivery O2 Flow Rate FiO2 03/01/21 11:00 98.3 109 18 136/90 (105) 95 Nasal Cannula 2.0 98.3 I & O 02/28/21 02/28/21 03/01/21 15:00 23:00 07:00 Intake Total 0 ml 0 ml Balance 0 ml 0 ml Physical Exam Physical Exam: VITAL SIGNS: stable HEENT: Both pupils are round and reacting. No conjunctival lesion, no lesion in the mouth. NECK: Supple, no JVP, no lymphadenopathy. LUNGS: Clear. HEART: S1, S2 regular. ABDOMEN: Benign. EXTREMITIES: No edema or cyanosis. SKIN: Unremarkable. NEUROLOGIC: The patient is alert, awake, but mental retardation with unable to do meaningful communication. General: Alert, Cooperative, mild distress Abdomen: Normal bowel sounds, Soft, No tenderness, No hepatosplenomegaly, No masses Extremities: No clubbing, No cyanosis, No edema, Normal pulses, No tenderness/swelling Skin: No rashes, No breakdown, No significant lesion Assessment and Plan Assessmemt and Plan Problems Medical Problems: (1) Gram positive sepsis Status: Acute Comment Review of Relevant I have reviewed the following items theresa (where applicable) has been applied. Justifications for Admission Other Justification KAREN AMATO MD Mar 01, 2021 14:01
[2021-03-01 15:18] VITALS: BP 133/87
[2021-03-01 19:00] VITALS: BP 141/99
[2021-03-01] MEDS: PSYLLIUM HUSK (SUGAR FREE) 1 PKT PACKET PO SCH (22:47)
[2021-03-01 23:00] VITALS: BP 143/103
[2021-03-02 03:00] VITALS: BP 126/83
[2021-03-02 07:00] VITALS: BP 139/93
[2021-03-02] MEDS: THIAMINE 100 MG TABLET. PO SCH (09:06)
[2021-03-02] MEDS: FAMOTIDINE 20 MG TABLET. PO SCH ×2 (09:06→21:27)
[2021-03-02] MEDS: CITALOPRAM 20 MG TABLET. PO SCH (09:06)
[2021-03-02] MEDS: ENOXAPARIN 40 MG/0.4 ML SYRINGE. SQ SCH ×2 (09:06→21:27)
[2021-03-02] MEDS: guaiFENesin DM 200MG/20MG 10 ML SYRUP PO PRN (09:06)
[2021-03-02] MEDS: levETIRAcetam 500 MG TABLET PO SCH ×2 (09:06→21:27)
[2021-03-02] MEDS: LACTOBACILLUS RHAMNOSUS GG 1 CAPSULE. PO SCH ×2 (09:06→21:27)
[2021-03-02] MEDS: ASPIRIN 325 MG TABLET PO SCH (09:06)
[2021-03-02] MEDS: ZINC SULFATE 220 MG CAPSULE. PO SCH (09:06)
[2021-03-02] MEDS: CETIRIZINE HCL 10 MG TABLET. PO SCH (09:06)
[2021-03-02] MEDS: ASCORBIC ACID 500 MG TABLET PO SCH (09:06)
[2021-03-02] MEDS: LOXAPINE SUCCINATE 25 MG CAPSULE PO SCH ×2 (09:06→21:27)
[2021-03-02] MEDS: POLYETHYLENE GLYCOL 3350 17 GM PACKET. PO SCH (09:06)
[2021-03-02 11:00] VITALS: BP 113/77
--- NOTE | 2021-03-02 13:14 | PDOC ---
Infectious Disease Note Subjective Subjective pt is feeling fine no fever on 2lo2 by nc Vital Sign Vital Signs Vital Signs Date Time Temp Pulse Resp B/P (MAP) Pulse Ox O2 Delivery O2 Flow Rate FiO2 03/02/21 11:00 98.4 101 18 113/77 (89) 93 Nasal Cannula 2.0 98.4 Physical Exam PHYSICAL EXAM VITAL SIGNS: stable HEENT: Both pupils are round and reacting. No conjunctival lesion, no lesion in the mouth. NECK: Supple, no JVP, no lymphadenopathy. LUNGS: Clear. HEART: S1, S2 regular. ABDOMEN: Benign. EXTREMITIES: No edema or cyanosis. SKIN: Unremarkable. NEUROLOGIC: The patient is alert, awake, but mental retardation with unable to do meaningful communication. Labs Micro Microbiology 02/26/21 Urine Culture - Final, Complete 02/26/21 Blood Culture - Preliminary, Resulted NO GROWTH AFTER 1 DAY Objective Assessment 1. COVID-19 positive. 2. Blood culture 1 out of 2 gram-positive cocci, most likely to be contaminant. 3. Gastroesophageal reflux disease. 4. Cerebral palsy. 5. Mental retardation. Plan Plan of Care cont supportive care OK to IBETH Moraes MD Mar 02, 2021 13:14
--- NOTE | 2021-03-02 14:41 | PDOC ---
[employer] [facility] PROGRESS NOTE Date of Service DOS: DATE: 03/02/21 TIME: 14:40 Chief Complaint Chief Complaint Multifocal pneumonia COVID-19 Positive Allergic rhinitis GERD Chronic constipation Cerebral palsy, Intellectual disability Seizure disorder History of Present Illness History of Present Illness HPI: Ms Velez is a 35 year old female with a history of allergic rhinitis, GERD, chronic constipation, cerebral palsy, mental retardation and seizure disorder who had been seen in the ED the past 2 days, [facility] her [facility], due to some mild COVID 19 symptoms. Still c/o shortness of breath and a cough as well as some fever, chills and congestion. She had a positive blood culture from blood cultures that were drawn in the emergency department 02/26/21 positive for gram-positive cocci in clusters and was instructed to return. She has no chest pain and only asks if she can watch television, eat and if I can help her go to the restroom. Unable to obtain much more history. Tachycardic with heart rate 108 bpm. breathing 20/min O2 saturations 94% on room air. Labs with WBC 5.3, Hb 12.5, platelets 392, NA 139, K4.2, BUN 5, CR 0.8 glucose 154, calcium 8.5, lactic acid 1-urinalysis with moderate blood ketones negative leukocyte esterase and nitrites, urine test negative Chest radiograph with diffuse left upper lobe bilateral lower lobe interstitial infiltrates. Given her persistent symptoms and positive blood cultures admitted for treatment of pneumonia and bacteremia 02/27 03/01: Patient seen and examined. Discussed with RN. Chart reviewed. Patient was not in acute distress. ia on O2 per nasal cannula blood cx likely contaminant Patient is not on antibiotics. + low grade fever since yesterday. 03/02, can DC any time, I was informed her care facility cannot accept her back on wednesday, will try tomorrow, is a holiday, she looks better, probably at baseline Vitals/I&O Vitals/I&O: Vital Signs Date Time Temp Pulse Resp B/P (MAP) Pulse Ox O2 Delivery O2 Flow Rate FiO2 03/02/21 11:00 98.4 101 18 113/77 (89) 93 Nasal Cannula 2.0 98.4 I & O 03/01/21 03/01/21 03/02/21 15:00 23:00 07:00 Intake Total 240 ml 300 ml Balance 240 ml 300 ml Physical Exam Physical Exam: VITAL SIGNS: stable HEENT: Both pupils are round and reacting. No conjunctival lesion, no lesion in the mouth. NECK: Supple, no JVP, no lymphadenopathy. LUNGS: Clear. HEART: S1, S2 regular. ABDOMEN: Benign. EXTREMITIES: No edema or cyanosis. SKIN: Unremarkable. NEUROLOGIC: The patient is alert, awake, but mental retardation with unable to do meaningful communication. General: Alert, Cooperative, mild distress Abdomen: Normal bowel sounds, Soft, No tenderness, No hepatosplenomegaly, No masses Extremities: No clubbing, No cyanosis, No edema, Normal pulses, No tenderness/swelling Skin: No rashes, No breakdown, No significant lesion Assessment and Plan Assessmemt and Plan Problems Medical Problems: (1) Gram positive sepsis Status: Acute Comment Review of Relevant I have reviewed the following items theresa (where applicable) has been applied. Justifications for Admission Other Justification KAREN AMATO MD Mar 02, 2021 14:41
[2021-03-02 15:05] VITALS: BP 117/76
[2021-03-02 19:00] VITALS: BP 158/89
[2021-03-02] MEDS: PSYLLIUM HUSK (SUGAR FREE) 1 PKT PACKET PO SCH (21:28)
[2021-03-02 22:47] VITALS: BP 150/84
[2021-03-03 03:00] VITALS: BP 141/72
[2021-03-03 07:30] VITALS: BP 136/79
--- NOTE | 2021-03-03 08:02 | DISCH ---
DISCHARGE INSTRUCTIONS Condition on Discharge Condition on Discharge: Guarded Activity After Discharge Activity Instructions for Disc: Activity as tolerated Lifting Instructions after Dis: No heavy lifting, Do not lift >10 pounds Driving Instructions after Dis: Do not drive Weight Bearing Status after Di: No restrictions Diet after Discharge Diet after Discharge: Regular Additional Diet Restrictions: encourage fluids Diet Texture: Regular Liquid Texture: Thin Liquid Swallowing Supervision: None needed Wound Incision Care Wound/Incision Care: May get incision wet, No wound care needed Contacting the DR. after DC Call your doctor for: If your condition worsens Follow-Up Follow up with: PCP within 2 weeks of discharge Treatment/Equipment after DC Adaptive Equipment Issued: None HAL SMITH MD Mar 03, 2021 08:02
[2021-03-03] MEDS: ASCORBIC ACID 500 MG TABLET PO SCH (10:14)
[2021-03-03] MEDS: LACTOBACILLUS RHAMNOSUS GG 1 CAPSULE. PO SCH ×2 (10:14→21:44)
[2021-03-03] MEDS: CITALOPRAM 20 MG TABLET. PO SCH (10:14)
[2021-03-03] MEDS: LOXAPINE SUCCINATE 25 MG CAPSULE PO SCH ×2 (10:14→21:45)
[2021-03-03] MEDS: POLYETHYLENE GLYCOL 3350 17 GM PACKET. PO SCH (10:14)
[2021-03-03] MEDS: ZINC SULFATE 220 MG CAPSULE. PO SCH (10:14)
[2021-03-03] MEDS: levETIRAcetam 500 MG TABLET PO SCH ×2 (10:15→21:45)
[2021-03-03] MEDS: CETIRIZINE HCL 10 MG TABLET. PO SCH (10:15)
[2021-03-03] MEDS: THIAMINE 100 MG TABLET. PO SCH (10:15)
[2021-03-03] MEDS: ENOXAPARIN 40 MG/0.4 ML SYRINGE. SQ SCH ×2 (10:15→21:44)
[2021-03-03] MEDS: ASPIRIN 325 MG TABLET PO SCH (10:16)
[2021-03-03] MEDS: FAMOTIDINE 20 MG TABLET. PO SCH ×2 (10:16→21:45)
[2021-03-03 11:55] VITALS: BP 141/90
--- NOTE | 2021-03-03 13:26 | PDOC ---
[facility] PROGRESS NOTE Date of Service DOS: DATE: 03/03/21 TIME: 13:23 Chief Complaint Chief Complaint Multifocal pneumonia COVID-19 Positive Allergic rhinitis GERD Chronic constipation Cerebral palsy, Intellectual disability Seizure disorder History of Present Illness History of Present Illness HPI: Ms Velez is a 35 year old female with a history of allergic rhinitis, GERD, chronic constipation, cerebral palsy, mental retardation and seizure disorder who had been seen in the ED the past 2 days, sent from her senior care, due to some mild COVID 19 symptoms. Still c/o shortness of breath and a cough as well as some fever, chills and congestion. She had a positive blood culture from blood cultures that were drawn in the emergency department 02/26/21 positive for gram-positive cocci in clusters and was instructed to return. She has no chest pain and only asks if she can watch television, eat and if I can help her go to the restroom. Unable to obtain much more history. Tachycardic with heart rate 108 bpm. breathing 20/min O2 saturations 94% on room air. Labs with WBC 5.3, Hb 12.5, platelets 392, NA 139, K4.2, BUN 5, CR 0.8 glucose 154, calcium 8.5, lactic acid 1-urinalysis with moderate blood ketones negative leukocyte esterase and nitrites, urine test negative Chest radiograph with diffuse left upper lobe bilateral lower lobe interstitial infiltrates. Given her persistent symptoms and positive blood cultures admitted for treatment of pneumonia and bacteremia 02/27 03/01: Patient seen and examined. Discussed with RN. Chart reviewed. Patient was not in acute distress. ia on O2 per nasal cannula blood cx likely contaminant Patient is not on antibiotics. + low grade fever since yesterday. 03/02, can DC any time, I was informed her care facility cannot accept her back on wednesday, will try tomorrow, is a holiday, she looks better, probably at baseline 03/03/2021 No acute events overnight. Patient seen and examined bedside. Patient saturating 95% on 2 L nasal cannula. Will anticipate discharge tomorrow once O2 for home can be set up by social work Vitals/I&O Vitals/I&O: Vital Signs Date Time Temp Pulse Resp B/P (MAP) Pulse Ox O2 Delivery O2 Flow Rate FiO2 03/03/21 08:00 Nasal Cannula 2.0 03/03/21 07:30 98.6 92 18 136/79 (98 96 98.6 Physical Exam Physical Exam: VITAL SIGNS: stable HEENT: Both pupils are round and reacting. No conjunctival lesion, no lesion in the mouth. NECK: Supple, no JVP, no lymphadenopathy. LUNGS: Clear. HEART: S1, S2 regular. ABDOMEN: Benign. EXTREMITIES: No edema or cyanosis. SKIN: Unremarkable. NEUROLOGIC: The patient is alert, awake, but mental retardation with unable to do meaningful communication. General: Alert, Cooperative, mild distress Abdomen: Normal bowel sounds, Soft, No tenderness, No hepatosplenomegaly, No masses Extremities: No clubbing, No cyanosis, No edema, Normal pulses, No tenderness/swelling Skin: No rashes, No breakdown, No significant lesion Labs Labs: Laboratory Tests Test 03/02/21 16:58 03/02/21 19:15 Glucose (Fingerstick) 156 mg/dL (70-99) 94 mg/dL (70-99) Assessment and Plan Assessmemt and Plan Problems Medical Problems: (1) Gram positive sepsis Status: Acute Comment Review of Relevant I have reviewed the following items theresa (where applicable) has been applied. Justifications for Admission Other Justification HAL SMITH MD Mar 03, 2021 13:26
[2021-03-03 15:09] VITALS: BP 122/91
[2021-03-03 19:00] VITALS: BP 149/101
[2021-03-03] MEDS: PSYLLIUM HUSK (SUGAR FREE) 1 PKT PACKET PO SCH (21:45)
[2021-03-03 23:00] VITALS: BP 149/101
[2021-03-04 03:00] VITALS: BP 138/84
[2021-03-04 07:00] VITALS: BP 150/98
[2021-03-04] MEDS: ASCORBIC ACID 500 MG TABLET PO SCH (10:57)
[2021-03-04] MEDS: FAMOTIDINE 20 MG TABLET. PO SCH (10:57)
[2021-03-04] MEDS: CETIRIZINE HCL 10 MG TABLET. PO SCH (10:57)
[2021-03-04] MEDS: CITALOPRAM 20 MG TABLET. PO SCH (10:57)
[2021-03-04] MEDS: ZINC SULFATE 220 MG CAPSULE. PO SCH (10:57)
[2021-03-04] MEDS: ASPIRIN 325 MG TABLET PO SCH (10:57)
[2021-03-04] MEDS: THIAMINE 100 MG TABLET. PO SCH (10:57)
[2021-03-04] MEDS: levETIRAcetam 500 MG TABLET PO SCH (10:57)
[2021-03-04] MEDS: LACTOBACILLUS RHAMNOSUS GG 1 CAPSULE. PO SCH (10:57)
[2021-03-04] MEDS: POLYETHYLENE GLYCOL 3350 17 GM PACKET. PO SCH (10:59)
[2021-03-04] MEDS: ENOXAPARIN 40 MG/0.4 ML SYRINGE. SQ SCH (10:59)
[2021-03-04] MEDS: LOXAPINE SUCCINATE 25 MG CAPSULE PO SCH (10:59)
[2021-03-04 11:00] VITALS: BP 132/89
--- NOTE | 2021-03-04 12:38 | NUR ---
SW following. Discussed with RN. Pt from [facility], 2L, COVID-19 positive. Pt needs 6 minute walk for oxygen to be set up with [facility] (ph: [phone], fax: [phone]). Awaiting 6 minute walk. [facility] can collect pt today after oxygen delivered. TIAGO will continue to follow. Addendum: 03/04/21 at 1520 by JACKY ORDOÑEZ [facility] notified of no need for oxygen. [facility] will be here to collect pt between [id number]. RN notified.
[2021-03-04 15:00] VITALS: BP 143/89
--- NOTE | 2021-03-04 16:52 | NUR ---
Pt left unit at 1640 by wheelchair via transportation. Pt's IV removed without complication, VSS. Discharge paperwork discussed with and given to Nuris nurse with [facility]. COVID instructions included.
--- NOTE | 2021-03-15 16:12 | PDOC3 ---
[facility]-Discharge Summary Date of Admission: Date of Admission: Feb 26, 2021 Date of Discharge: Date of Discharge: Mar 04, 2021 Discharge Diagnosis: Discharge Diagnosis: Multifocal pneumonia COVID-19 Positive Allergic rhinitis GERD Chronic constipation Cerebral palsy, Intellectual disability Seizure disorder Hospital Course: Hospital Course: 35 year old female with a history of allergic rhinitis, GERD, chronic constipation, cerebral palsy, mental retardation and seizure disorder who had been seen in the ED the past 2 days, sent from her detention, due to some mild COVID 19 symptoms. Still c/o shortness of breath and a cough as well as some fever, chills and congestion. She had a positive blood culture from blood cultures that were drawn in the emergency department 02/26/21 positive for gram-positive cocci in clusters and was instructed to return. She has no chest pain and only asks if she can watch television, eat and if I can help her go to the restroom. Unable to obtain much more history. Tachycardic with heart rate 108 bpm. breathing 20/min O2 saturations 94% on room air. Labs with WBC 5.3, Hb 12.5, platelets 392, NA 139, K4.2, BUN 5, CR 0.8 glucose 154, calcium 8.5, lactic acid 1-urinalysis with moderate blood ketones negative leukocyte esterase and nitrites, urine test negative Chest radiograph with diffuse left upper lobe bilateral lower lobe interstitial infiltrates. Given her persistent symptoms and positive blood cultures admitted for treatment of pneumonia and bacteremia 02/27 03/01: Patient seen and examined. Discussed with RN. Chart reviewed. Patient was not in acute distress. ia on O2 per nasal cannula blood cx likely contaminant Patient is not on antibiotics. + low grade fever since yesterday. 03/02, can DC any time, I was informed her care facility cannot accept her back on wednesday, will try tomorrow, is a holiday, she looks better, probably at baseline 03/03/2021 No acute events overnight. Patient seen and examined bedside. Patient saturating 95% on 2 L nasal cannula. Will anticipate discharge tomorrow once O2 for home can be set up by social work By day of discharge, pt was clinically stable and ready for discharge. Rest of hospital course was uneventful Disposition: Disposition/Orders: D/C to Home Activity: Activity: Resume previous activity Diet: Diet: Regular Medications: Home Meds Active Scripts Levofloxacin (LEVOFLOXACIN) 750 Mg Tablet, 1 TAB PO DAILY, #7 TAB Prov:LESIA RIVERA 02/25/21 Albuterol Sulfate (PROAIR HFA INHALER) 8.5 Gm Hfa.aer.ad, 2 PUFF IH PRN Q4-6HRS PRN for wheezing for 21 Days, #1 INHALER 0 Refills Prov:LESIA RIVERA 02/25/21 Prednisone (PREDNISONE) 50 Mg Tablet, 1 TAB PO DAILY for 5 Days, #5 TAB Prov:LESIA RIVERA DO 02/25/21 Albuterol Sulfate (PROAIR HFA INHALER) 8.5 Gm Hfa.aer.ad, 2 PUFF IH PRN Q4-6HRS PRN for wheezing for 21 Days, #1 INHALER 0 Refills Prov:EVANS CALVERT MD 02/23/21 Hydrocodone/Apap 5-325 (NORCO 5-325 TABLET) 1 Each Tablet, 1-2 TAB PO Q4-6HRS, #23 TAB Prov:MO FAGAN MD 09/23/16 Levetiracetam (KEPPRA) 500 Mg Tablet, 500 MG PO BID, #60 TAB Prov:PRACHI REYNOLDS MD 08/05/16 Reported Medications Albuterol Sulfate (VENTOLIN HFA INHALER) 18 Gm Hfa.aer.ad, 2 PUFF INH Q6HRS for COUGH, INHALER 0 Refills 08/04/16 Ranitidine Hcl (RANITIDINE HCL) 150 Mg Tablet, 1 TAB PO BID, #180 TAB 3 Refills 08/04/16 Polyethylene Glycol 3350 (MIRALAX) 17 Gm Powd.pack, 1 PACKET PO DAILY, #30 PACKET 3 Refills 08/04/16 Loxapine Succinate (LOXAPINE) 50 Mg Capsule, 50 MG PO BID 08/04/16 Loratadine (LORATADINE) 10 Mg Tablet, 1 TAB PO DAILY, #30 TAB 5 Refills 08/04/16 Escitalopram Oxalate (ESCITALOPRAM OXALATE) 20 Mg Tablet, 1 TAB PO DAILY, #30 TAB 5 Refills 08/04/16 Scheduled Albuterol Sulfate (Ventolin Hfa Inhaler), 2 PUFF INH Q6HRS, (Reported) Escitalopram Oxalate (Escitalopram Oxalate), 1 TAB PO DAILY, (Reported) Hydrocodone/Apap 5-325 (Mountain 5-325 Tablet), 1-2 TAB PO Q4-6HRS Levetiracetam (Keppra), 500 MG PO BID Levofloxacin (Levofloxacin), 1 TAB PO DAILY Loratadine (Loratadine), 1 TAB PO DAILY, (Reported) Loxapine Succinate (Loxapine), 50 MG PO BID, (Reported) Polyethylene Glycol 3350 (Miralax), 1 PACKET PO DAILY, (Reported) Prednisone (Prednisone), 1 TAB PO DAILY Ranitidine Hcl (Ranitidine Hcl), 1 TAB PO BID, (Reported) Scheduled PRN Albuterol Sulfate (Proair Hfa Inhaler), 2 PUFF IH PRN Q4-6HRS PRN for wheezing Albuterol Sulfate (Proair Hfa Inhaler), 2 PUFF IH PRN Q4-6HRS PRN for wheezing Total Time: Total Time: Total time spent was 34 minutes in preparing scripts, discharge planning with SW and RN, and preparing this discharge summary. Patient seen and examined on day of discharge. Justicifation of Admission Dx: Justifications for Admission: Justification of Admission Dx: Yes Respiratory Failure: Severe Resp Distress HAL SMITH MD Mar 15, 2021 16:12
== END 2021-03-04 16:53 | disposition home or self-care (01) | DRG 177 ==
LOC: ER 15:58 → 5 SOUTH 16:28
PROVIDERS: ADMIT Internal Medicine; ATTEND Internal Medicine
DX: U07.1 COVID-19 (principal); J12.82 Pneumonia due to coronavirus disease 2019; F31.9 Bipolar disorder, unspecified; G40.909 Epilepsy, unspecified, not intractable, without status epilepticus; G80.9 Cerebral palsy, unspecified; J30.9 Allergic rhinitis, unspecified; K21.9 Gastro-esophageal reflux disease without esophagitis; K59.09 Other constipation; F41.9 Anxiety disorder, unspecified; F79 Unspecified intellectual disabilities
CPT/HCPCS: 36415; 71045; 80048; 81001; 81025; 82728; 82962; 83036; 83605; 85007; 85025; 86140; 87040; 87086; 94618; 96365; 96368; J1650; J2543; J3370; J7030; J7040; 92610-GN; 99285-25; G0378